=== PATIENT | female | born 2005 | race American Indian/Alaskan Native ===

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

== ENCOUNTER 2024-02-05 14:28 | Emergency (ER) | payer MEDICAID ==
[~2024-02-05] VITALS: Ht 162.6 cm; Wt 133.0 kg
[2024-02-05 16:11] LABS: Basophils # (auto) 0.1 10 ^3/uL (0-0.2); Basophils % (auto) 0.5 % (0.0-2.0); Eosinophils # (auto) 0.3 10 ^3/uL (0-0.8); Eosinophils % (auto) 2.4 % (0.0-7.0); Hematocrit 41.5 % (36.0-46.0); Lymphocytes # (auto) 2.7 10 ^3/uL (0.4-5.4); Lymphocytes % (auto) 20.8 % (10.0-50.0); Mean Corpuscular Hemoglobin 29.1 pg (28.0-32.0); Mean Corpuscular Hgb Conc. 33.6 g/dL (32.0-36.0); Mean Corpuscular Volume 86.6 fL (80.0-100.0); Monocytes # (auto) 0.5 10 ^3/uL (0-1.3); Monocytes % (auto) 3.9 % (0.0-12.0); Neutrophils # (auto) 9.3 10 ^3/uL (1.6-8.6); Neutrophils % (auto) 72.4 % (37.0-80.0); Red Blood Cells 4.79 10^6/uL (4.0-5.20); White Blood Cell 12.9 10^3/uL (4.4-10.8)
[2024-02-05 16:29] LABS: Alanine Aminotransferase 36 U/L (7-40); Albumin 4.2 g/dL (3.2-4.8); Alkaline Phosphatase 93 U/L (46-116); Anion Gap 8 (5-15); Aspartate Aminotransferase 19 U/L (13-40); BUN/Creatinine Ratio 15.2 (10.0-20.0); Blood Urea Nitrogen 12 mg/dL (9-23); Calcium 9.9 mg/dL (8.7-10.4); Carbon Dioxide 26 mmol/L (20-30); Chloride 107 mmol/L (98-107); Glucose 134 mg/dL (74-106); Lipase 40 U/L (12-53); Magnesium 1.9 mg/dL (1.6-2.6); Potassium 4.3 mmol/L (3.5-5.1); Sodium 141 mmol/L (136-145)
[2024-02-05 16:30] LABS: Bilirubin, Total 0.2 mg/dL (0.2-1.0); Total Protein 7.4 g/dL (5.7-8.2)
[2024-02-05] MEDS: SODIUM CHLORIDE 0.9% 500 ML IVB ONE (16:39)
[2024-02-05] MEDS: IOHEXOL 300 MG/ML 100ML BOTTLE IJ ONE (17:22)
[2024-02-05 18:24] LABS: Urine Bacteria None Seen /hpf (None Seen)
[2024-02-05 18:41] LABS: Urine Blood Negative /uL (Negative); Urine Clarity Clear (Clear); Urine Color Light-Yellow (Yellow); Urine Protein, UAD TRACE (Negative); Urine Specific Gravity 1.035 (1.001-1.035); Urine Urobilinogen Normal (Negative); Urine WBC 1 /hpf (0 - 5); Urine pH 6.5 (5.0-9.0)
[2024-02-05] MEDS ORDERED: NITR-87 PO (20:28)
[2024-02-05 20:41] VITALS: BP 134/60; PULSE 77; RESP 16; TEMP 97.8; O2SAT 97
== END 2024-02-05 20:44 | disposition home or self-care (01) ==
LOC: ER 14:28
DX: R30.0 Dysuria (principal); R10.2 Pelvic and perineal pain; F41.9 Anxiety disorder, unspecified; F20.9 Schizophrenia, unspecified
CPT/HCPCS: 36415; 71046; 74177; 80053; 81001; 83690; 83735; 84702; 85025; 96360; 96361; 99285; J7030; Q9967

== ENCOUNTER → 2024-07-20 | Day surgery (SDC) | payer MEDICAID ==
[2024-07-17 11:36] LABS: Basophils # (auto) 0.1 10 ^3/uL (0-0.2); Basophils % (auto) 0.9 % (0.0-2.0); Eosinophils # (auto) 0.4 10 ^3/uL (0-0.8); Eosinophils % (auto) 3.6 % (0.0-7.0); Hematocrit 42.8 % (36.0-46.0); Hemoglobin 14.2 g/dL (12.2-16.2); Lymphocytes % (auto) 28.9 % (10.0-50.0); Mean Corpuscular Hemoglobin 28.4 pg (28.0-32.0); Mean Corpuscular Hgb Conc. 33.1 g/dL (32.0-36.0); Mean Corpuscular Volume 85.8 fL (80.0-100.0); Monocytes # (auto) 0.5 10 ^3/uL (0-1.3); Monocytes % (auto) 4.4 % (0.0-12.0); Neutrophils # (auto) 6.5 10 ^3/uL (1.6-8.6); Neutrophils % (auto) 62.2 % (37.0-80.0); Platelet Count (auto) 298 10^3/uL (140-450); Red Blood Cells 4.99 10^6/uL (4.0-5.20); Red Cell Distribution Width 15.4 % (11.8-14.3); White Blood Cell 10.4 10^3/uL (4.4-10.8)
[2024-07-17 12:03] LABS: Urine Bacteria FEW /hpf (None Seen); Urine Blood TRACE /uL (Negative); Urine Clarity Turbid (Clear); Urine Color Light-Yellow (Yellow); Urine Protein, UAD Negative (Negative); Urine Specific Gravity 1.024 (1.001-1.035); Urine Squamous Epithelial Cell FEW /hpf (<5); Urine Urobilinogen Normal (Negative); Urine WBC <1 /hpf (0 - 5); Urine pH 5.5 (5.0-9.0)
[2024-07-17 12:11] LABS: Alanine Aminotransferase 31 U/L (7-40); Albumin 4.5 g/dL (3.2-4.8); Alkaline Phosphatase 85 U/L (46-116); Anion Gap 6 (5-15); Aspartate Aminotransferase 20 U/L (13-40); BUN/Creatinine Ratio 16.7 (10.0-20.0); Bilirubin, Total 0.4 mg/dL (0.2-1.0); Blood Urea Nitrogen 12 mg/dL (9-23); Calcium 10.3 mg/dL (8.7-10.4); Carbon Dioxide 28 mmol/L (20-31); Chloride 105 mmol/L (98-107); Glucose 95 mg/dL (74-106); Potassium 4.3 mmol/L (3.5-5.1); Sodium 139 mmol/L (136-145); Total Protein 7.9 g/dL (5.7-8.2)
[2024-07-17 12:18] LABS: Partial Thromboplastin Time 27.9 SEC (24.5-34.5); Prothrombin Time 10.6 sec (9.3-11.8)
[~2024-07-20] VITALS: Ht 162.6 cm; Wt 130.6 kg
[~2024-07-20] MED LIST: ARIP2TAB PO; CHOL25CH3 PO; CITA10TA8 PO; CLON-1003 PO; LIDOCAINE 2% (LOCAL ANESTH.) PF 5ml SDV ONE; NAP500T PO; PROPOFOL 10 MG/ML 20 ML IV ONE; SERT25TA28 PO; UBRO50TA2 PO
[2024-07-20 09:33] VITALS: PULSE 67; RESP 23; TEMP 97.7; O2SAT 100
--- NOTE | 2024-07-20 09:33 | DVHHP2 ---
GI H&P Pre-Op Assessment Date: 07/20/24 Chief complaint: epigastric pain, constipation, melena and blood in stool. HPI: per clinic note Past medical history: per clinic note Past surgical history: per clinic note Family history: per clinic note Physical exam: General: NAD, AAOX3 HEENT: PERRL, no scleral icterus, normal hearing, gums without lesions or bleeding, oropharynx clear without erythema or exudate. Neck: Supple without enlargement of the thyroid, or lymphadenopathy. Chest: Normal size and shape, no tenderness, lung moralez clear to auscultation and percussion, nonlabored breathing. Heart: RRR, no murmur Abdomen: non-distended, no tenderness to palpation, +BS, no hepatosplenomegaly Extremities: no edema Neurological: CN II-XII intact, sensation intact in all extremities, 5+ strength in all extremities Skin: No rashes, No jaundice Assessment: - epigastric pain, constipation, melena and blood in stool. Plan: - EGD - Colonoscopy - Risks (bleeding, infection, perforation, reaction to sedation medications and cardiopulmonary arrest) and benefit of the procedure were explained to patient. Patient agrees to undergo the procedure. ELLEN DALY MD Jul 20, 2024 09:33
--- NOTE | 2024-07-20 09:34 | DVHOP2 ---
Operative Report DATE OF OPERATION: 07/20/24 PROCEDURE: Upper Endoscopy. PREOPERATIVE INDICATION: The patient is a 18 -year-old female undergoing endoscopy for epigastric pain and melena. POSTOPERATIVE DIAGNOSES: 1. Normal EGD PROCEDURE PERFORMED BY: Branden Philippe SCOPE: Olympus videoendoscope. ASA CLASS: 3 PREOPERATIVE MEDICATIONS: MAC with Homero ALARCON PROCEDURE IN DETAIL: After obtaining an informed consent, the patient was placed on left lateral decubitus position. The patient was then sedated with the above medications. A bite block was placed between her teeth. The endoscope was then passed through the oropharynx, into the esophagus, and through the stomach and pylorus up to the second and third part of the duodenum. The duodenum and stomach was normal in appearance. Gastric biopsies were obtained. The GEJ was normal in appearance at 36 cm. The esophagus was normal in appearance. The endoscope was then withdrawn. The patient tolerated the procedure well without difficulty. COMPLICATIONS : None SPECIMENS: Gastric biopsies DISPOSITION: D/C to home PLAN: 1. Await for biopsy result BRANDEN PHILIPPE MD Jul 20, 2024 09:34
--- NOTE | 2024-07-20 09:36 | DVHOP2 ---
Operative Report DATE OF OPERATION: 07/20/24 PROCEDURE: Colonoscopy. PREOPERATIVE INDICATION: The patient is a 18 -year-old female undergoing colonoscopy for constipation and blood in stool. POSTOPERATIVE DIAGNOSES: 1. Normal colonoscopy. PROCEDURE PERFORMED BY: Branden Philippe M.D. SCOPE: Olympus videocolonoscope. ASA CLASS: 3 PREOPERATIVE MEDICATIONS: MADHU with Homero ALARCON PROCEDURE IN DETAIL: After obtaining an informed consent, the patient was placed on left lateral decubitus position. She was then sedated with the above medications. A rectal examination was performed that was normal. The colonoscope was then passed through the anus into the rectosigmoid and through the descending, transverse, and ascending colon up to the cecum with visualization of the appendiceal orifice, base of the cecum and the ileocecal valve. No mass or polyp was observed. The colonoscope was then withdrawn. The patient tolerated the procedure well without difficulty. WITHDRAWAL TIME: 6 minutes QUALITY OF THE PREP: [place] Bowel Prep score: 7 COMPLICATIONS : None SPECIMENS: None DISPOSITION: D/C to home PLAN: 1. Pt will c/u in GI clinic BRANDEN PHILIPPE MD Jul 20, 2024 09:36
--- NOTE | 2024-07-20 09:36 | DVHDS2 ---
Physician Discharge Progress N Final Diagnosis: normal EGD, normal colonoscopy Operations or Procedures: Operations or Procedures EGD with biopsy colonoscopy Condition on Discharge: Good Disposition: Home Discharge Instructions: Diet: Regular Activity: No Restrictions, As Tolerated Medications: resume with previous home medications Follow Up Care: Discharge Statement: "Patient was advised to return to the ER or call 911 if any headaches, dizziness, shortness of breath, chest pain, abdominal pain, bleeding, fevers, or worsening of medical condition. Patient was counseled about treatment plan, medications, possible side effects, patientverbalized understanding. All questions were answered to the best of my ability. This discharge took greater then 30 minutes in planning, reviewing documentation, counseling the patient, and discussing with other team members." ELLEN DALY MD Jul 20, 2024 09:36
[2024-07-20 10:11] VITALS: BP 128/80; PULSE 61; RESP 16; O2SAT 100
== END | disposition home or self-care (01) ==
LOC: GI 07:12
PROVIDERS: ATTEND Internal Medicine Gastroenterology
DX: K92.1 Melena (principal); K59.00 Constipation, unspecified; R10.13 Epigastric pain; K29.50 Unspecified chronic gastritis without bleeding; G47.33 Obstructive sleep apnea (adult) (pediatric); F41.9 Anxiety disorder, unspecified; Z79.899 Other long term (current) drug therapy; Z91.018 Allergy to other foods
CPT/HCPCS: 36415; 43239; 45378; 80053; 81001; 84702; 85025; 85610; 85730; 88305; 88312; 88342; J2003; J2704; J7030

== ENCOUNTER 2024-11-05 20:11 | Inpatient (IN) | payer MEDICAID ==
[~2024-11-05] VITALS: Ht 162.6 cm; Wt 131.4 kg
[~2024-11-05 20:11] MED LIST changes: -LIDOCAINE 2% (LOCAL ANESTH.) PF 5ml SDV ONE; -PROPOFOL 10 MG/ML 20 ML IV ONE
--- NOTE | 2024-11-05 20:28 | ED.PDOC ---
GI ASSESSMENT HPI Comments 19 y.o female with PMHx of sleep apnea, Schizophrenia, Depression, anxiety, bipolar disorder, presents to the ED via EMS for a chief complaint of diffuse abdominal pain that started today at 1600. Patient describes pain as a stabbing sensation, is constant, non radiating and has no associated symptoms. Patient mentions starting Wegovy injection today and states she used it at 12:43pm for weight loss. Patient denies any nausea, vomiting, fever, chills. diarrhea, constipation, dysuria, hematuria or flank pain. Last bowel movement was one hour ago and described as normal. She denies any substance, alcohol or tobacco use. Time Seen by MD: 20:20 Primary Care Provider: PATRIC Reviewed Notes: Nurses Notes, Fish Hatchery Man Notes, Medications, Allergies Allergies: Coded Allergies: Ciprofloxacin (Unverified Allergy, Mild, N/V, 07/17/24) Uncoded Allergies: KIWI (Allergy, Intermediate, 04/05/24) IYCHY RED Home Meds Active Scripts Dicyclomine Hcl (BENTYL CAPSULE) 10 Mg Cp, 2 CAP PO Q6HP PRN, #30 CAP 11 Refills Prn abdominal pain Prov:BEAU DAIZ MD 11/05/24 Ibuprofen Micronized (Ibuprofen) 800 Mg Tab, 800 MG PO Q8HP PRN, #30 TAB Prn pain, take with food. Prov:BEAU DIAZ MD 11/05/24 Reported Medications Ubrogepant (Ubrelvy) Unknown Strength Tab, PO, TAB 07/17/24 Clonazepam (Klonopin) Unknown Strength Tab, PO DAILY, #30 TAB 07/17/24 Cholecalciferol (D3) Unknown Strength Chw, PO, TAB.CHEW 07/17/24 Citalopram Hydrobromide (Celexa) Unknown Strength Tab, PO DAILY, #30 TAB 2 Refills 07/17/24 Naproxen (NAPROSYN TABLET) Unknown Strength Tb, PO BID, #60 TAB 1 Refill 07/17/24 Sertraline Hcl (Sertraline Hcl) Unknown Strength Tab, PO DAILY, #30 TAB 2 Refills 07/17/24 Aripiprazole (Abilify) Unknown Strength Tab, PO DAILY, #30 TAB 2 Refills 07/17/24 Information Source: Patient, Emergency Med Personnel Mode of Arrival: EMS Timing: Hours Duration: Since onset Quality: Stabbing Vomitus: None Stool: Normal Severity: Moderate Recent: None Recent Hx of: None Pain Location: Diffuse Modifying Factors: Nothing Associated sign and symptoms: Abdominal Pain Past Medical History PAST MEDICAL HISTORY: Anxiety, Depression, Schizophrenia Past Medical History (Other): bipolar disorder and sleep apnea Surgical History: Denies all surgeries 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 History Family History Family History: No family hx of Cancer, No family hx of DM, No family hx of Heart micaela Social History Smoker: Non-Smoker Alcohol: Denies ETOH Use Drugs: Denies Drug Use Lives In: Home Constitutional: denies: chills, diaphoresis, fatigue, fever, malaise, sweats, weakness, others EENTM: denies: blurred vision, double vision, ear bleeding, ear discharge, ear drainage, ear pain, ear ringing, eye pain, eye redness, hearing loss, mouth pain, mouth swelling, nasal discharge, nose bleeding, nose congestion, nose pain, photophobia, tearing, throat pain, throat swelling, voice changes, others Respiratory: denies: cough, hemoptysis, orthopnea, SOB at rest, shortness of breath, SOB with excertion, stridor, wheezing, others Cardiovascular: denies: chest pain, dizzy spells, diaphoresis, Dyspnea on exert ion, edema, irregular heart beat, left arm pain, lightheadedness, palpitations, PND, syncope, others Gastrointestinal: reports: abdominal pain; denies: abdomen distended, blood streaked bowels, constipated, diarrhea, dysphagia, difficulty swallowing, hematemesis, melena, nausea, poor appetite, poor fluid intake, rectal bleeding, rectal pain, vomiting, others Genitourinary: denies: abnormal vagina bleeding, burning, dyspareunia, dysuria, flank pain, frequency, hematuria, incontinence, pain, , vagina discharge, urgency, others Neurological: denies: dizziness, fainting, headache, left sided numbness, left sided weakness, numbness, paresthesia, pre-existing deficit, right sided numbness, right sided weakness, seizure, speech problems, tingling, tremors, weakness, others Musculoskeletal: denies: back pain, gout, joint pain, joint swelling, muscle pain, muscle stiffness, neck pain, others Integumetry: denies: bruises, change in color, change in hair/nails, dryness, laceration, lesions, lumps, rash, wounds, others Allergic/Immunocompromised: denies: Difficulty Healing, Frequent Infections, Hives, Itching, others Hematologic/Lymphatic: denies: anemia, blood clots, easy bleeding, easy bruising, swollen glands, others Endocrine: denies: excessive hunger, excessive sweating, excessive thirst, excessive urination, flushing, intolerance to cold, intolerance to heat, unexplained weight gain, unexplained weight loss, others Psychiatric: denies: anxiety, bipolar disorder, depression, hopeless, panic disorder, schizophrenia, sleepless, suicidal, others All Other Systems: Reviewed and Negative Physical Exam General Appearance: Mild Distress, Obese HEENT: Other (Pupils and face symmetric. Moist mucous membranes.) Neck: Full Range of Motion, Normal Inspection Respiratory: Lungs Clear, No Accessory Muscle Use, No Respiratory Distress, Normal Breath Sounds Cardiovascular: No Edema, No JVD, Regular Rate/Rhythm Breast Exam: Deferred Gastrointestinal: Diffuse, Soft, Tenderness Genitalia: Deferred Pelvic: Deferred Rectal: Deferred Extremities: Normal inspection, Normal range of motion, Non-tender, No pedal edema Neurologic: Alert (Oriented x4), Normal Affect, Normal Mood, Other (Ambulatory.) Cerebellar Function: NOT DONE Reflexes: NOT DONE Skin: Dry, Normal Color, Warm Lymphatic: NOT DONE Was a procedure done? Was a procedure done?: No GI differential Dx Differential Diagnosis: Appendicitis, Constipation, Diverticular disease, Ectopic , Gastroenteritis, Inflammatory BD, Pancreatitis, Dehydration, Diabetes/ DKA, Electrolyte Imbalance, Food Poisoning, , Bacterial, Viral, Impaction, Renal Failure, Stress Ulcer, Kidney Stone Other Differential Diagnosis Medication side effect, among others X-Ray, Labs, Meds, VS Vital Signs Date Time Temp Pulse Resp B/P (MAP) Pulse Ox O2 Delivery O2 Flow Rate FiO2 11/05/24 20:26 97.7 80 96 160/91 (114) 96 97.7 Lab Test 11/05/24 20:40 11/05/24 20:20 Range/Units White Blood Count 12.7 H 4.4-10.8 10^3/uL Red Blood Count 4.75 4.0-5.20 10^6/uL Hemoglobin 13.3 12.2-16.2 g/dL Hematocrit 40.4 36.0-46.0 % Mean Corpuscular Volume 85.2 80.0-100.0 fL Mean Corpuscular Hemoglobin 28.0 28.0-32.0 pg Mean Corpuscular Hemoglobin Concent 32.8 32.0-36.0 g/dL Red Cell Distribution Width 14.6 H 11.8-14.3 % Platelet Count 301 140-450 10^3/uL Mean Platelet Volume 8.6 6.9-10.8 fL Neutrophils (%) (Auto) 67.2 37.0-80.0 % Lymphocytes (%) (Auto) 21.5 10.0-50.0 % Monocytes (%) (Auto) 6.7 0.0-12.0 % Eosinophils (%) (Auto) 4.1 0.0-7.0 % Basophils (%) (Auto) 0.5 0.0-2.0 % Neutrophils # (Auto) 8.5 1.6-8.6 10 ^3/uL Lymphocytes # (Auto) 2.7 0.4-5.4 10 ^3/uL Monocytes # (Auto) 0.8 0-1.3 10 ^3/uL Eosinophils # (Auto) 0.5 0-0.8 10 ^3/uL Basophils # (Auto) 0.1 0-0.2 10 ^3/uL Nucleated Red Blood Cells 0.0 % Sodium Level 139 136-145 mmol/L Potassium Level 4.1 3.5-5.1 mmol/L Chloride Level 106 98-107 mmol/L Carbon Dioxide Level 27 20-31 mmol/L Anion Gap 6 5-15 Blood Urea Nitrogen 7 L 9-23 mg/dL Creatinine 0.60 0.550-1.02 mg/dL Glomerular Filtration Rate Calc 132 >90 mL/min BUN/Creatinine Ratio 11.7 10.0-20.0 Serum Glucose 88 74-106 mg/dL Lactic Acid Level 0.7 0.4-2.0 mmol/L Calcium Level 9.7 8.7-10.4 mg/dL Total Bilirubin 0.3 0.2-1.0 mg/dL Aspartate Amino Transferase (AST) 23 13-40 U/L Alanine Aminotransferase (ALT) 30 7-40 U/L Alkaline Phosphatase 92 46-116 U/L Total Protein 7.6 5.7-8.2 g/dL Albumin 4.4 3.2-4.8 g/dL Lipase 38 12-53 U/L Beta HCG, Quantitative 0.1 L 1.5-4.2 mIU/mL Urine Color Light-yellow Yellow Urine Clarity Clear Clear Urine pH 6.5 5.0-9.0 Urine Specific [place] 1.013 1.001-1.035 Urine Protein Negative Negative Urine Ketones Negative Negative Urine Blood Negative Negative /uL Urine Nitrite Negative Negative Urine Bilirubin Negative Negative Urine Urobilinogen Normal Negative mg/dL Urine Leukocyte Esterase Negative Negative /uL Urine RBC 1 0 - 4 /hpf Urine Microscopic WBC < 1 0-5 /HPF Urine Squamous Epithelial Cells Few <5 /hpf Urine Bacteria None seen None Seen /hpf Urine Glucose Normal Normal mg/dL PROCEDURE(s): ABPL - CT AB PEL WO CON-NO ORAL OR IV REASON: diffuse abd pain after using wegovy ORDER NUMBER(s): [id number], ACCESSION NUMBER(s): [id number] Exam: CT CT AB PEL WO CON-NO ORAL OR IV History: diffuse abd pain after using wegovy Comparison Study: None Technique: Multidetector spiral CT of the abdomen was performed from lung bases to pubic symphysis. Imaging was performed without IV contrast. Axial, coronal and sagittal multiplanar reformats were obtained from the axial data set by the technologist. Radiation Dose : 1. Abdomen/Pelvis: CTDIvol 28 mGy, DLP 1630 mGy*cm. Findings: Evaluation of solid organs is limited due to lack of intravenous contrast use. Lung Bases: No acute or significant lung base finding. Normal heart size. No pleural or pericardial effusion. Liver: The liver is normal in size. No focal lesions. Gallbladder and Biliary Tree: Unremarkable Spleen: Unremarkable Pancreas: The pancreas is grossly normal in appearance. Adrenal Glands: Unremarkable Kidneys: Kidneys are grossly normal without calculi or hydronephrosis. Bladder: Grossly unremarkable for degree of distention. Bowel: The stomach is grossly normal in appearance. Small bowel and colon are normal in caliber and distribution. The appendix is not visualized; however, no secondary findings of acute appendicitis identified. Ascites: Absent Lymphadenopathy: No mesenteric, retroperitoneal or periportal lymphadenopathy. Abdominal Wall and Mesentery: Unremarkable. Vasculature: The visualized abdominal aorta is normal in size and caliber. Evaluation of abdominal and pelvic vessels is limited due to lack of intravenous contrast. Pelvic Organs: Unremarkable Musculoskeletal: No aggressive focal bony lesions, acute fractures or di slocation. IMPRESSION: 1. No acute abdominal or pelvic findings. Radiation optimization: All CT scans at this facility use at least one of these dose optimization techniques: automated exposure control mA and/or kV adjustment per patient size (includes targeted exams where dose is matched to clinical indication) or iterative reconstruction. X-Ray, Labs, Meds, VS Comment 19 y.o female with PMHx of sleep apnea, Schizophrenia, Depression, anxiety, bipolar disorder brought in by EMS complaining of diffuse abdominal pain after using Wegovy. Vitals remarkable for BP 160/91 Exam remarkable for mild diffuse abdominal tenderness to palpation. Nontender to percussion. No rebound or guarding. Rhythm strip independently interpreted by me: Sinus rhythm, rate 80, no ectopy. CT abdomen and pelvis IMPRESSION: 1. No acute abdominal or pelvic findings. CBC remarkable for WBC 12.7, CMP, lipase, UA and lactate unremarkable for any abnormality of acute significance Patient treated with the following in the ED: 1 L 0.9 normal saline IV bolus, morphine 4 mg IV, Zofran 4 mg IV, Bentyl 20 mg IM On re-evaluation, patient states symptoms have improved. Vitals were stable, and repeat abdominal exam is benign. Patient now appears stable for discharge with close outpatient follow-up. Symptoms are likely due to side effect of Wegovy. Rx ibuprofen, Bentyl Time of 1ST Reevaluation: 21:30 Reevaluation 1ST: Unchanged Time of 2ND Reevaluation: 22:29 Reevaluation 2ND: Improved Patient Education/Counseling: Diagnosis, Treatment, Prognosis Family Education/Counseling: No Family Present Departure 1 Departure Time of Disposition: 22:00 Impression: Primary Impression: Abdominal pain Qualified Codes: R10.84 - Generalized abdominal pain Disposition: HOME / SELF CARE / HOMELESS Condition: Stable Additional Instructions: Your blood and urine tests were unremarkable. Your CT scan was unremarkable. Your symptoms are possibly due to Wegovy. I have prescribed medication for your symptoms. Follow-up with your primary doctor in 1-2 days. [place] [id number] Ph: [phone] DIAGNOSTIC IMAGING Diagnostic Imaging Report : [id number] Signed PATIENT: ARCHANA ORDONEZ ACCT: [id number] UNIT: [id number] : 2005 LOC: ER ROOM / BED: / AGE / SEX: 19 / F ADM STATUS: REG ER SERVICE 25 ORDERING PHYSICIAN: BEAU DIAZ MD PROCEDURE(s): ABPL - CT AB PEL WO CON-NO ORAL OR IV REASON: diffuse abd pain after using wegovy ORDER NUMBER(s): [id number], ACCESSION NUMBER(s): [id number] Exam: CT CT AB PEL WO CON-NO ORAL OR IV History: diffuse abd pain after using wegovy Comparison Study: None Technique: Multidetector spiral CT of the abdomen was performed from lung bases to pubic symphysis. Imaging was performed without IV contrast. Axial, coronal and sagittal multiplanar reformats were obtained from the axial data set by the technologist. Radiation Dose : 1. Abdomen/Pelvis: CTDIvol 28 mGy, DLP 1630 mGy*cm. Findings: Evaluation of solid organs is limited due to lack of intravenous contrast use. Lung Bases: No acute or significant lung base finding. Normal heart size. No pleural or pericardial effusion. Liver: The liver is normal in size. No focal lesions. Gallbladder and Biliary Tree: Unremarkable Spleen: Unremarkable Pancreas: The pancreas is grossly normal in appearance. Adrenal Glands: Unremarkable Kidneys: Kidneys are grossly normal without calculi or hydronephrosis. Bladder: Grossly unremarkable for degree of distention. Bowel: The stomach is grossly normal in appearance. Small bowel and colon are normal in caliber and distribution. The appendix is not visualized; however, no secondary findings of acute appendicitis identified. Ascites: Absent Lymphadenopathy: No mesenteric, retroperitoneal or periportal lymphadenopathy. Abdominal Wall and Mesentery: Unremarkable. Vasculature: The visualized abdominal aorta is normal in size and caliber. Evaluation of abdominal and pelvic vessels is limited due to lack of intravenous contrast. Pelvic Organs: Unremarkable Musculoskeletal: No aggressive focal bony lesions, acute fractures or dislocation. IMPRESSION: 1. No acute abdominal or pelvic findings. Radiation optimization: All CT scans at this facility use at least one of these dose optimization techniques: automated exposure control mA and/or kV adjustment per patient size (includes targeted exams where dose is matched to clinical indication) or iterative reconstruction. e-Prescriptions Dicyclomine Hcl (BENTYL CAPSULE) 10 Mg Cp 2 CAP PO Q6HP PRN, #30 CAP 11 Refills Prn abdominal pain Prov: BEAU DIAZ MD 11/05/24 Ibuprofen Micronized (Ibuprofen) 800 Mg Tab 800 MG PO Q8HP PRN, #30 TAB Prn pain, take with food. Prov: BEAU DIAZ MD 11/05/24 Discharged With: Relative Critical Care Note Critical Care Time?: No Stability Stability form required: No I personally scribed for BEAU DIAZ MD ([facility] on 11/05/24 at 20:28. Electronically submitted by Johnna Smith ([facility]). BEAU DIAZ MD November 05, 2024 20:28
[2024-11-05 20:57] LABS: Urine Bacteria None Seen /hpf (None Seen)
[2024-11-05 20:58] LABS: Basophils # (auto) 0.1 10 ^3/uL (0-0.2); Basophils % (auto) 0.5 % (0.0-2.0); Eosinophils # (auto) 0.5 10 ^3/uL (0-0.8); Eosinophils % (auto) 4.1 % (0.0-7.0); Hematocrit 40.4 % (36.0-46.0); Hemoglobin 13.3 g/dL (12.2-16.2); Lymphocytes # (auto) 2.7 10 ^3/uL (0.4-5.4); Lymphocytes % (auto) 21.5 % (10.0-50.0); Mean Corpuscular Hgb Conc. 32.8 g/dL (32.0-36.0); Mean Corpuscular Volume 85.2 fL (80.0-100.0); Monocytes # (auto) 0.8 10 ^3/uL (0-1.3); Monocytes % (auto) 6.7 % (0.0-12.0); Neutrophils # (auto) 8.5 10 ^3/uL (1.6-8.6); Neutrophils % (auto) 67.2 % (37.0-80.0); Platelet Count (auto) 301 10^3/uL (140-450); Red Blood Cells 4.75 10^6/uL (4.0-5.20); Red Cell Distribution Width 14.6 % (11.8-14.3); White Blood Cell 12.7 10^3/uL (4.4-10.8)
[2024-11-05 21:04] LABS: Urine Blood Negative /uL (Negative); Urine Clarity Clear (Clear); Urine Color Light-Yellow (Yellow); Urine Protein, UAD Negative (Negative); Urine Specific Gravity 1.013 (1.001-1.035); Urine Squamous Epithelial Cell FEW /hpf (<5); Urine Urobilinogen Normal (Negative); Urine WBC < 1 /HPF (0-5); Urine pH 6.5 (5.0-9.0)
[2024-11-05 21:14] LABS: Alanine Aminotransferase 30 U/L (7-40); Albumin 4.4 g/dL (3.2-4.8); Alkaline Phosphatase 92 U/L (46-116); Anion Gap 6 (5-15); Aspartate Aminotransferase 23 U/L (13-40); BUN/Creatinine Ratio 11.7 (10.0-20.0); Calcium 9.7 mg/dL (8.7-10.4); Carbon Dioxide 27 mmol/L (20-31); Chloride 106 mmol/L (98-107); Glucose 88 mg/dL (74-106); Lipase 38 U/L (12-53); Potassium 4.1 mmol/L (3.5-5.1); Sodium 139 mmol/L (136-145); Total Protein 7.6 g/dL (5.7-8.2)
[2024-11-05 21:17] LABS: Bilirubin, Total 0.3 mg/dL (0.2-1.0); Blood Urea Nitrogen 7 mg/dL (9-23)
[2024-11-05] MEDS ORDERED: IBUP-1455 PO (21:41)
[2024-11-05] MEDS ORDERED: DICY10CA PO (21:41)
--- NOTE | 2024-11-05 22:21 | DVH ---
Exam: CT CT AB PEL WO CON-NO ORAL OR IV History: diffuse abd pain after using wegovy Comparison Study: None Technique: Multidetector spiral CT of the abdomen was performed from lung bases to pubic symphysis. Imaging was performed without IV contrast. Axial, coronal and sagittal multiplanar reformats were ob tained from the axial data set by the technologist. Radiation Dose : 1. Abdomen/Pelvis: CTDIvol 28 mGy, DLP 1630 mGy*cm. Findings: Evaluation of solid organs is limited due to lack of intravenous contrast use. Lung Bases: No acute or significant lung base finding. Normal heart size. No pleural or pericardial effusion. Liver: The liver is normal in size. No focal lesions. Gallbladder and Biliary Tree: Unremarkable Spleen: Unremarkable Pancreas: The pancreas is grossly normal in appearance. Adrenal Glands: Unremarkable Kidneys: Kidneys are grossly normal without calculi or hydronephrosis. Bladder: Grossly unremarkable for degree of distention. Bowel: The stomach is grossly normal in appearance. Small bowel and colon are normal in caliber and d istribution. The appendix is not visualized; however, no secondary findings of acute appendicitis id entified. Ascites: Absent Lymphadenopathy: No mesenteric, retroperitoneal or periportal lymphadenopathy. Abdominal Wall and Mesentery: Unremarkable. Vasculature: The visualized abdominal aorta is normal in size and caliber. Evaluation of abdominal a nd pelvic vessels is limited due to lack of intravenous contrast. Pelvic Organs: Unremarkable Musculoskeletal: No aggressive focal bony lesions, acute fractures or dislocation. IMPRESSION: 1. No acute abdominal or pelvic findings. Radiation optimization: All CT scans at this facility use at least one of these dose optimization olivia hniques: automated exposure control mA and/or kV adjustment per patient size (includes targeted exam s where dose is matched to clinical indication) or iterative reconstruction.
[2024-11-05] MEDS: SODIUM CHLORIDE 0.9% 1,000 ML IV ONE (23:14)
[2024-11-05] MEDS: ONDANSETRON HCL 4 MG/2 ML VIAL IV ONE (23:14)
[2024-11-05] MEDS: DICYCLOMINE HCL (10MG/ML) 2 ML AMPULE IM ONE (23:14)
[2024-11-05] MEDS: MORPHINE SULFATE 4 MG/ML SYR/VIAL IV ONE (23:15)
[2024-11-06] MEDS: PROCHLORPERAZINE EDISYLATE 5 MG/ML 2ML VIAL IV ONE (00:43)
[2024-11-06] MEDS: FAMOTIDINE (10MG/ML) 2ML VL IV ONE (01:01)
[2024-11-06] MEDS: KETOROLAC TROMETH 30 MG/ML 1ML VIAL IV ONE (01:01)
--- NOTE | 2024-11-06 01:05 | PRN ---
Misceleneous Note Note Note 19-year-old female with nausea, vomiting, pain. Patient was pending discharge however she continues to have abdominal pain, nausea, vomiting even after additional antiemetics. Patient to be admitted to hospitalist service for further treatment, evaluation and monitoring. Disposition Disposition: Admit inpatient Disposition condition: Stable Visit Coding Complete: No Admitting Diagnosis: Intractable Nausea and Vomiting CHRISTINA VILLATORO MD November 06, 2024 01:05
[2024-11-06 02:11] VITALS: PULSE 71; RESP 16; O2SAT 95
[2024-11-06] MEDS: MORPHINE SULFATE INJ 2 MG/ml SYRG IV ONE (03:35)
[2024-11-06] MEDS ORDERED: ACETAMINOPHEN 325 MG TAB PO PRN (04:45)
[2024-11-06] MEDS ORDERED: MORPHINE SULFATE INJ 2 MG/ml SYRG IV PRN (04:45)
--- NOTE | 2024-11-06 05:04 | DVHHP2 ---
History of Present Illness Reason for Visit: Abdominal pain History of Present Illness 19-year-old female presents for evaluation of abdominal pain. Patient reports diffuse abdominal pain that started today. Patient reports Wegovy for weight loss today. She has had multiple episodes of nausea and vomiting. Denies dysuria. No other acute complaints reported. Past Medical History Schizophrenia, depression Past Surgical History Denies Family History Noncontributory Smoke: No ALCOHOL: none Drugs: None Lives: with Family Review of Systems Review of Systems Review of systems are currently negative otherwise addressed in HPI. Allergies: Coded Allergies: Ciprofloxacin (Unverified Allergy, Mild, N/V, 07/17/24) Uncoded Allergies: KIWI (Allergy, Intermediate, 04/05/24) IYCHY RED Medications Current Medications Medications Dose Ordered Sig/Reece Route Start Time Stop Time Status Last Admin Dose Admin Pantoprazole Sodium 40 mg DAILY IV 11/06/24 10:00 Acetaminophen/ Hydrocodone Bitart 1 tab Q4HP PRN PO 11/06/24 04:45 Ondansetron HCl 4 mg Q4HP PRN IV 11/06/24 04:45 Acetaminophen 650 mg Q6HP PRN PO 11/06/24 04:45 Morphine Sulfate 2 mg Q6HPRN PRN IV 11/06/24 04:45 Exam Vital Signs Vital Signs Date Time Temp Pulse Resp B/P (MAP) Pulse Ox O2 Delivery O2 Flow Rate FiO2 11/06/24 03:35 62 18 117/63 11/06/24 02:11 95 Room Air* 0 21 11/06/24 02:11 98.3 98.3 Exam Gen: 19-year-old female in mild distress, morbidly obese Skin: Warm, dry, normal color and texture, no rash. HEENT: Normocephalic atraumatic, mucous membranes moist and pink. Neck: Cervical and supraclavicular nodes normal without enlargement, trachea is midline, thyroid gland is normal without masses. Pulmonary: Clear to auscultation and percussion bilaterally. Cardiac: Regular rate and rhythm. No murmur Abdomen: Soft, nontender, nondistended, bowel sounds present all 4 quadrants, no guarding, no rigidity, no organomegaly. Extremities: No cyanosis, clubbing, no edema Neuro: Cranial nerves II through XII grossly intact, normal affect and speech, no focal motor deficits. Labs/Xrays ORDERING PHYSICIAN: BEAU DIAZ MD PROCEDURE(s): ABPL - CT AB PEL WO CON-NO ORAL OR IV REASON: diffuse abd pain after using wegovy ORDER NUMBER(s): [id number], ACCESSION NUMBER(s): [id number] Exam: CT CT AB PEL WO CON-NO ORAL OR IV History: diffuse abd pain after using wegovy Comparison Study: None Technique: Multidetector spiral CT of the abdomen was performed from lung bases to pubic symphysis. Imaging was performed without IV contrast. Axial, coronal and sagittal multiplanar reformats were obtained from the axial data set by the technologist. Radiation Dose : 1. Abdomen/Pelvis: CTDIvol 28 mGy, DLP 1630 mGy*cm. Findings: Evaluation of solid organs is limited due to lack of intravenous contrast use. Lung Bases: No acute or significant lung base finding. Normal heart size. No pleural or pericardial effusion. Liver: The liver is normal in size. No focal lesions. Gallbladder and Biliary Tree: Unremarkable Spleen: Unremarkable Pancreas: The pancreas is grossly normal in appearance. Adrenal Glands: Unremarkable Kidneys: Kidneys are grossly normal without calculi or hydronephrosis. Bladder: Grossly unremarkable for degree of distention. Bowel: The stomach is grossly normal in appearance. Small bowel and colon are normal in caliber and distribution. The appendix is not visualized; however, no secondary findings of acute appendicitis identified. Ascites: Absent Lymphadenopathy: No mesenteric, retroperitoneal or periportal lymphadenopathy. Abdominal Wall and Mesentery: Unremarkable. Vasculature: The visualized abdominal aorta is normal in size and caliber. Evaluation of abdominal and pelvic vessels is limited due to lack of intravenous contrast. Pelvic Organs: Unremarkable Musculoskeletal: No aggressive focal bony lesions, acute fractures or dislocation. IMPRESSION: 1. No acute abdominal or pelvic findings. Radiation optimization: All CT scans at this facility use at least one of these dose optimization techniques: automated exposure control mA and/or kV adjustment per patient size (includes targeted exams where dose is matched to clinical indication) or iterative reconstruction. Labs Test 11/05/24 20:40 11/05/24 20:20 Range/Units White Blood Count 12.7 H 4.4-10.8 10^3/uL Red Blood Count 4.75 4.0-5.20 10^6/uL Hemoglobin 13.3 12.2-16.2 g/dL Hematocrit 40.4 36.0-46.0 % Mean Corpuscular Volume 85.2 80.0-100.0 fL Mean Corpuscular Hemoglobin 28.0 28.0-32.0 pg Mean Corpuscular Hemoglobin Concent 32.8 32.0-36.0 g/dL Red Cell Distribution Width 14.6 H 11.8-14.3 % Platelet Count 301 140-450 10^3/uL Mean Platelet Volume 8.6 6.9-10.8 fL Neutrophils (%) (Auto) 67.2 37.0-80.0 % Lymphocytes (%) (Auto) 21.5 10.0-50.0 % Monocytes (%) (Auto) 6.7 0.0-12.0 % Eosinophils (%) (Auto) 4.1 0.0-7.0 % Basophils (%) (Auto) 0.5 0.0-2.0 % Neutrophils # (Auto) 8.5 1.6-8.6 10 ^3/uL Lymphocytes # (Auto) 2.7 0.4-5.4 10 ^3/uL Monocytes # (Auto) 0.8 0-1.3 10 ^3/uL Eosinophils # (Auto) 0.5 0-0.8 10 ^3/uL Basophils # (Auto) 0.1 0-0.2 10 ^3/uL Nucleated Red Blood Cells 0.0 % Sodium Level 139 136-145 mmol/L Potassium Level 4.1 3.5-5.1 mmol/L Chloride Level 106 98-107 mmol/L Carbon Dioxide Level 27 20-31 mmol/L Anion Gap 6 5-15 Blood Urea Nitrogen 7 L 9-23 mg/dL Creatinine 0.60 0.550-1.02 mg/dL Glomerular Filtration Rate Calc 132 >90 mL/min BUN/Creatinine Ratio 11.7 10.0-20.0 Serum Glucose 88 74-106 mg/dL Lactic Acid Level 0.7 0.4-2.0 mmol/L Calcium Level 9.7 8.7-10.4 mg/dL Total Bilirubin 0.3 0.2-1.0 mg/dL Aspartate Amino Transferase (AST) 23 13-40 U/L Alanine Aminotransferase (ALT) 30 7-40 U/L Alkaline Phosphatase 92 46-116 U/L Total Protein 7.6 5.7-8.2 g/dL Albumin 4.4 3.2-4.8 g/dL Lipase 38 12-53 U/L Beta HCG, Quantitative 0.1 L 1.5-4.2 mIU/mL Urine Color Light-yellow Yellow Urine Clarity Clear Clear Urine pH 6.5 5.0-9.0 Urine Specific [place] 1.013 1.001-1.035 Urine Protein Negative Negative Urine Ketones Negative Negative Urine Blood Negative Negative /uL Urine Nitrite Negative Negative Urine Bilirubin Negative Negative Urine Urobilinogen Normal Negative mg/dL Urine Leukocyte Esterase Negative Negative /uL Urine RBC 1 0 - 4 /hpf Urine Microscopic WBC < 1 0-5 /HPF Urine Squamous Epithelial Cells Few <5 /hpf Urine Bacteria None seen None Seen /hpf Urine Glucose Normal Normal mg/dL Assessment/Plan Assessment/Plan Assessment Acute abdominal pain Plan Admit the patient to [facility] to the hospitalist Clear liquid diet Maintenance IV fluids Pain management Continue treatment per orders. Plan discussed with: Patient My Orders Orders - CRUZ SO Procedure Category Date Status Time Pantoprazole PHA 11/06/24 In Process (Protonix) 10:00 Sodium Chloride 0.9% PHA 11/06/24 In Process 04:45 * Gi Dvh Modeling Director CONS 11/06/24 Transmitted 04:37 Basic Metabolic Panel LAB 11/07/24 Verified 04:00 Admit ADMIT 11/06/24 Transmitted 04:37 Hydrocodone-Acet PHA 11/06/24 In Process 5/325mg Tab ([place] 04:45 Ondansetron Hcl PHA 11/06/24 In Process (Zofran) 04:45 Condition: Stable MAURIZIO 11/06/24 In Process 04:37 Acetaminophen Tablet PHA 11/06/24 In Process (Tylenol Tablet) 04:45 Clear Liq Diet DIET 11/06/24 Transmitted Breakfast Bedrest With Bathroom MAURIZIO 11/06/24 In Process Privileg 04:37 Morphine Sulfate PHA 11/06/24 In Process Injection 04:45 Date of Service: November 06, 2024 Billing Provider: CRUZ SO Common Visit Codes: [id number] INP/OBS CARE (MOD) CRUZ SO November 06, 2024 05:04
[2024-11-06] MEDS: SODIUM CHLORIDE 0.9% 1,000 ML IV ONE ×2 (05:30→13:28)
[2024-11-06] MEDS: PANTOPRAZOLE 40 MG/10 ML VIAL INJ IV SCH (08:59)
[2024-11-06 09:13] VITALS: BP 131/77; PULSE 70; PULSE 93; RESP 18; TEMP 98.5; O2SAT 96; O2SAT 97
[2024-11-06] MEDS: ONDANSETRON HCL 4 MG/2 ML VIAL IV PRN (09:20)
[2024-11-06 09:21] VITALS: BP 131/77; PULSE 93; RESP 18; TEMP 98.5; O2SAT 97
[2024-11-06] MEDS: HYDROcodone-ACET 5/325MG TAB PO PRN (11:51)
[2024-11-06 13:03] VITALS: BP 112/64; PULSE 54; RESP 18; TEMP 98.2; O2SAT 98
[2024-11-06] MEDS ORDERED: LAMO25TA27 PO (13:03)
[2024-11-06] MEDS ORDERED: FLUO-470 PO (13:03)
[2024-11-06] MEDS ORDERED: CLON0.5T4 PO (13:03)
--- NOTE | 2024-11-06 13:09 | DVHPN2 ---
Subjective Patient continues to report having epigastric pain and nausea and vomiting. Reviewed: Care Plan, Labs, Medications Changes from previous H/P or p: No Changes General: Per HPI Objective Vitals Vital Signs Date Time Temp Pulse Resp B/P (MAP) Pulse Ox O2 Delivery O2 Flow Rate FiO2 11/06/24 13:03 98.2 54 18 112/64 (80) 98 98.2 11/06/24 09:13 Room Air* 0 21 General Appearance: Alert, Oriented X3, Cooperative HEENT: Atraumatic, PERRLA Lungs: Clear to auscultation, Normal air movement Cardiovascular: Normal S1, Normal S2 Abdomen: Normal bowel sounds, Soft, No tenderness, No hepatospenomegaly Musculoskeletal: Normal sensory function, Normal motor function Psych/Mental Status: Mental status NL, Mood NL Medications Current Medications Medications Dose Ordered Sig/Reece Route Start Time Stop Time Status Last Admin Dose Admin Pantoprazole Sodium 40 mg DAILY IV 11/06/24 10:00 11/06/24 08:59 40 MG Acetaminophen/ Hydrocodone Bitart 1 tab Q4HP PRN PO 11/06/24 04:45 11/06/24 11:51 1 TAB Ondansetron HCl 4 mg Q4HP PRN IV 11/06/24 04:45 11/06/24 09:20 4 MG Acetaminophen 650 mg Q6HP PRN PO 11/06/24 04:45 Morphine Sulfate 2 mg Q6HPRN PRN IV 11/06/24 04:45 Metoclopramide HCl 10 mg Q8HR IV 11/06/24 14:00 UNV Clonazepam 0.5 mg BIDPRN PRN PO 11/06/24 13:15 UNV Fluoxetine HCl 60 mg QAM PO 11/07/24 07:00 UNV Laboratory Results Laboratory Tests 11/05/24 20:40 Chemistry Test 11/05/24 20:40 Albumin 4.4 g/dL (3.2-4.8) Calcium Level 9.7 mg/dL (8.7-10.4) Total Protein 7.6 g/dL (5.7-8.2) Lipid panel Test 11/05/24 20:40 Lipase 38 U/L (12-53) LFT Test 11/05/24 20:40 Alanine Aminotransferase (ALT) 30 U/L (7-40) Alkaline Phosphatase 92 U/L (46-116) Aspartate Amino Transferase (AST) 23 U/L (13-40) Total Bilirubin 0.3 mg/dL (0.2-1.0) Urinalysis Test 11/05/24 20:20 Urine Color Light-yellow (Yellow) Urine Clarity Clear (Clear) Urine pH 6.5 (5.0-9.0) Urine Specific [place] 1.013 (1.001-1.035) Urine Protein Negative (Negative) Urine Ketones Negative (Negative) Urine Blood Negative /uL (Negative) Urine Nitrite Negative (Negative) Urine Bilirubin Negative (Negative) Urine Urobilinogen Normal mg/dL (Negative) Urine Leukocyte Esterase Negative /uL (Negative) Urine RBC 1 /hpf (0 - 4) Urine Microscopic WBC < 1 /HPF (0-5) Urine Squamous Epithelial Cells Few /hpf (<5) Urine Bacteria None seen /hpf (None Seen) Urine Glucose Normal mg/dL (Normal) Labs and/or images reviewed: Labs reviewed by me, Image(s) reviewed by me Assessment/Plan Assessment/Plan Impression: -sirs response without organ dysfunction -obesity -schizophrenia -? Gastroparesis secondary to Wegovy injection -intractable nausea and vomiting Plan: -trial of Reglan -restart home antipsychotics -IV hydration -antiemetics -clear liquid diet -repeat labs in a.m. Total time spent with patient discussing and formulating plan of care: 35 minutes. This medical document was created using an electronic medical record system with [employer] dictation system. Although this document has been carefully reviewed, there may still be some phonetic and typographical errors. These areas are purely typographical due to imperfections of the software programs, and do not reflect any compromise in the patient's medical care. Plan discussed with: Patient, Other (RN) My Orders Orders - ALIA ESPINO PROCESS ARCHITECT Procedure Category Date Status Time Metoclopramide PHA 11/06/24 Logged Injection (Reglan 14:00 Sodium Chloride 0.9% PHA 11/06/24 Logged 13:15 Basic Metabolic Panel LAB 11/07/24 Verified 04:00 Complete Blood Count LAB 11/07/24 Verified 04:00 Clonazepam Tablet PHA 11/06/24 Logged (Klonopin Tablet) 13:15 Fluoxetine Capsule PHA 11/07/24 Logged (Prozac Capsule) 07:00 Date of Service: November 06, 2024 Billing Provider: ALIA ESPINO NP Common Visit Codes: [id number] INP/OBS CARE(HIGH) ALIA ESPINO NP November 06, 2024 13:09
[2024-11-06] MEDS ORDERED: clonazePAM 0.5 MG TAB PO PRN (13:15)
[2024-11-06] MEDS: METOCLOPRAMIDE HCL 5MG/ml INJ 2ml VIAL IV SCH (14:14)
[2024-11-06 17:04] VITALS: BP 106/65; PULSE 66; RESP 18; TEMP 97.7; O2SAT 96
--- NOTE | 2024-11-06 20:47 | DVHINCON2 ---
Date of service: November 06, 2024 Referring Physician Ajay Estrada Reason for Consultation Nausea vomiting and abdominal pain History of Present Illness 19-year-old female presents for evaluation of abdominal pain. Patient reports diffuse abdominal pain that started today. Patient reports Wegovy for weight loss today. She has had multiple episodes of nausea and vomiting. Denies dysuria. No other acute complaints reported. Patient had a recent EGD and colonoscopy in July [address] Branden Philippe which were both reported negative.In the past her drug screen was negative in August 2023 Past Medical History Past Medical History Schizophrenia, depression Past Surgical History Past Surgical History Recent EGD and colonoscopy Family History: Anxiety disorder G8 MOTHER FHx: bipolar disorder G8 MOTHER FHx: schizophrenia G8 MOTHER Allergies: Coded Allergies: Ciprofloxacin (Unverified Allergy, Mild, N/V, 07/17/24) Uncoded Allergies: KIWI (Allergy, Intermediate, 04/05/24) IYCHY RED Home Meds Active Scripts Dicyclomine Hcl (BENTYL CAPSULE) 10 Mg Cp, 2 CAP PO Q6HP PRN, #30 CAP 11 Refills Prn abdominal pain Prov:BEAU DIAZ MD 11/05/24 Ibuprofen Micronized (Ibuprofen) 800 Mg Tab, 800 MG PO Q8HP PRN, #30 TAB Prn pain, take with food. Prov:BEAU DIAZ MD 11/05/24 Reported Medications Clonazepam (Clonazepam) 0.5 Mg Tab, 1 TAB PO BIDPRN PRN 11/06/24 Lamotrigine (Lamotrigine) 25 Mg Tab, PO 11/06/24 Fluoxetine HCl (Fluoxetine HCl) 20 Mg Cap, 3 CAP PO QAM 11/06/24 Ubrogepant (Ubrelvy) Unknown Strength Tab, PO, TAB 07/17/24 Clonazepam (Klonopin) Unknown Strength Tab, PO DAILY, #30 TAB 07/17/24 Cholecalciferol (D3) Unknown Strength Chw, PO, TAB.CHEW 07/17/24 Citalopram Hydrobromide (Celexa) Unknown Strength Tab, PO DAILY, #30 TAB 2 Refills 07/17/24 Naproxen (NAPROSYN TABLET) Unknown Strength Tb, PO BID, #60 TAB 1 Refill 07/17/24 Sertraline Hcl (Sertraline Hcl) Unknown Strength Tab, PO DAILY, #30 TAB 2 Refills 07/17/24 Aripiprazole (Abilify) Unknown Strength Tab, PO DAILY, #30 TAB 2 Refills 07/17/24 Current Medications Current Medications Medications (Trade) Dose Ordered Sig/Reece Route PRN Reason Start Time Stop Time Status Last Admin Pantoprazole Sodium (Protonix) 40 mg DAILY IV 11/06/24 10:00 11/06/24 08:59 Acetaminophen/ Hydrocodone Bitart ([place] 5/325MG Tab) 1 tab Q4HP PRN PO MODERATE PAIN (4-6 PAIN SCALE) 11/06/24 04:45 11/06/24 11:51 Ondansetron HCl (Zofran) 4 mg Q4HP PRN IV NAUSEA / VOMITING 11/06/24 04:45 11/06/24 16:28 Acetaminophen (Tylenol Tablet) 650 mg Q6HP PRN PO PAIN SCALE 1-3 OR TEMP>100.4 11/06/24 04:45 Morphine Sulfate 2 mg Q6HPRN PRN IV SEVERE PAIN (7-10 PAIN SCALE) 11/06/24 04:45 Metoclopramide HCl (Reglan Injection) 10 mg Q8HR IV 11/06/24 14:00 11/06/24 14:14 Clonazepam (KlonoPIN TABLET) 0.5 mg BIDPRN PRN PO anxiety 11/06/24 13:15 Fluoxetine HCl (PROzac CAPSULE) 60 mg QAM PO 11/07/24 07:00 Lamotrigine (LaMICtal TABLET) 50 mg HS PO 11/06/24 22:00 Vital Signs Vital Signs Date Time Temp Pulse Resp B/P (MAP) Pulse Ox O2 Delivery O2 Flow Rate FiO2 11/06/24 17:04 97.7 66 18 106/65 (79) 96 97.7 11/06/24 09:13 Room Air* 0 21 Physical Exam Gen: 19-year-old female in mild distress, morbidly obese Skin: Warm, dry, normal color and texture, no rash. HEENT: Normocephalic atraumatic, mucous membranes moist and pink. Neck: Cervical and supraclavicular nodes normal without enlargement, trachea is midline, thyroid gland is normal without masses. Pulmonary: Clear to auscultation and percussion bilaterally. Cardiac: Regular rate and rhythm. No murmur Abdomen: Soft, nontender, nondistended, bowel sounds present all 4 quadrants, no guarding, no rigidity, no organomegaly. Extremities: No cyanosis, clubbing, no edema Neuro: Cranial nerves II through XII grossly intact, normal affect and speech, no focal motor deficits. Labs/Diagnostic Data Labs Test 11/05/24 20:40 11/05/24 20:20 Range/Units White Blood Count 12.7 H 4.4-10.8 10^3/uL Red Blood Count 4.75 4.0-5.20 10^6/uL Hemoglobin 13.3 12.2-16.2 g/dL Hematocrit 40.4 36.0-46.0 % Mean Corpuscular Volume 85.2 80.0-100.0 fL Mean Corpuscular Hemoglobin 28.0 28.0-32.0 pg Mean Corpuscular Hemoglobin Concent 32.8 32.0-36.0 g/dL Red Cell Distribution Width 14.6 H 11.8-14.3 % Platelet Count 301 140-450 10^3/uL Mean Platelet Volume 8.6 6.9-10.8 fL Neutrophils (%) (Auto) 67.2 37.0-80.0 % Lymphocytes (%) (Auto) 21.5 10.0-50.0 % Monocytes (%) (Auto) 6.7 0.0-12.0 % Eosinophils (%) (Auto) 4.1 0.0-7.0 % Basophils (%) (Auto) 0.5 0.0-2.0 % Neutrophils # (Auto) 8.5 1.6-8.6 10 ^3/uL Lymphocytes # (Auto) 2.7 0.4-5.4 10 ^3/uL Monocytes # (Auto) 0.8 0-1.3 10 ^3/uL Eosinophils # (Auto) 0.5 0-0.8 10 ^3/uL Basophils # (Auto) 0.1 0-0.2 10 ^3/uL Nucleated Red Blood Cells 0.0 % Sodium Level 139 136-145 mmol/L Potassium Level 4.1 3.5-5.1 mmol/L Chloride Level 106 98-107 mmol/L Carbon Dioxide Level 27 20-31 mmol/L Anion Gap 6 5-15 Blood Urea Nitrogen 7 L 9-23 mg/dL Creatinine 0.60 0.550-1.02 mg/dL Glomerular Filtration Rate Calc 132 >90 mL/min BUN/Creatinine Ratio 11.7 10.0-20.0 Serum Glucose 88 74-106 mg/dL Lactic Acid Level 0.7 0.4-2.0 mmol/L Calcium Level 9.7 8.7-10.4 mg/dL Total Bilirubin 0.3 0.2-1.0 mg/dL Aspartate Amino Transferase (AST) 23 13-40 U/L Alanine Aminotransferase (ALT) 30 7-40 U/L Alkaline Phosphatase 92 46-116 U/L Total Protein 7.6 5.7-8.2 g/dL Albumin 4.4 3.2-4.8 g/dL Lipase 38 12-53 U/L Beta HCG, Quantitative 0.1 L 1.5-4.2 mIU/mL Urine Color Light-yellow Yellow Urine Clarity Clear Clear Urine pH 6.5 5.0-9.0 Urine Specific [place] 1.013 1.001-1.035 Urine Protein Negative Negative Urine Ketones Negative Negative Urine Blood Negative Negative /uL Urine Nitrite Negative Negative Urine Bilirubin Negative Negative Urine Urobilinogen Normal Negative mg/dL Urine Leukocyte Esterase Negative Negative /uL Urine RBC 1 0 - 4 /hpf Urine Microscopic WBC < 1 0-5 /HPF Urine Squamous Epithelial Cells Few <5 /hpf Urine Bacteria None seen None Seen /hpf Urine Glucose Normal Normal mg/dL CT SCAN ABD PELVIS IMPRESSION: 1. No acute abdominal or pelvic findings. 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
[2024-11-06 21:00] VITALS: BP 117/54; PULSE 58; RESP 17; TEMP 97.6; O2SAT 97
[2024-11-06] MEDS: lamoTRIgine 25 MG TAB PO SCH (21:16)
[2024-11-07 01:00] VITALS: BP 120/57; PULSE 77; RESP 17; TEMP 97.7; O2SAT 100
[2024-11-07 05:00] VITALS: BP 119/80; PULSE 70; RESP 17; TEMP 97.8; O2SAT 98
[2024-11-07] MEDS: FLUoxetine HCL 20 MG CAP PO SCH (06:00)
[2024-11-07 06:23] LABS: Anion Gap 7 (5-15); Carbon Dioxide 27 mmol/L (20-31); Chloride 105 mmol/L (98-107); Sodium 139 mmol/L (136-145)
[2024-11-07 06:24] LABS: Basophils # (auto) 0 10 ^3/uL (0-0.2); Basophils % (auto) 0.5 % (0.0-2.0); Calcium 9.7 mg/dL (8.7-10.4); Eosinophils # (auto) 0.4 10 ^3/uL (0-0.8); Eosinophils % (auto) 4.1 % (0.0-7.0); Hematocrit 37.4 % (36.0-46.0); Hemoglobin 12.8 g/dL (12.2-16.2); Lymphocytes # (auto) 2.6 10 ^3/uL (0.4-5.4); Lymphocytes % (auto) 28.7 % (10.0-50.0); Mean Corpuscular Hemoglobin 28.8 pg (28.0-32.0); Mean Corpuscular Hgb Conc. 34.2 g/dL (32.0-36.0); Mean Corpuscular Volume 84.1 fL (80.0-100.0); Monocytes # (auto) 0.5 10 ^3/uL (0-1.3); Monocytes % (auto) 5.6 % (0.0-12.0); Neutrophils # (auto) 5.5 10 ^3/uL (1.6-8.6); Neutrophils % (auto) 61.1 % (37.0-80.0); Nucleated Red Blood Cells % 0.1 %; Platelet Count (auto) 281 10^3/uL (140-450); Red Blood Cells 4.45 10^6/uL (4.0-5.20); Red Cell Distribution Width 14.6 % (11.8-14.3)
[2024-11-07 06:28] LABS: Glucose 87 mg/dL (74-106)
[2024-11-07 06:33] LABS: Blood Urea Nitrogen 6 mg/dL (9-23)
--- NOTE | 2024-11-07 08:02 | ECG ---
[facility] Test Date: 2024-11-07 Test Time: 06:05:57 Pat Name: ARCHANA ORDONEZ Department: Respiratoy Room: [address] [place] [address] 4 Gender: F Heeler Machine: IMAN : 2005 Requested By: ALIA ESPINO Order Number: [id number] Reading MD: Measurements Intervals [place] Rate: 69 P: -5 CT: 161 QRS: 45 QRSD: 92 T: 25 QT: 395 QTc: 423 Interpretive Statements Sinus rhythm Low voltage, precordial leads Please click the below link to view image of tracing.
--- NOTE | 2024-11-07 08:02 | ECG ---
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
[2024-11-07 09:00] VITALS: BP 108/69; PULSE 61; RESP 18; TEMP 97.6; O2SAT 100
[2024-11-07 13:00] VITALS: BP 114/82; PULSE 62; RESP 17; TEMP 98.1; O2SAT 100
--- NOTE | 2024-11-07 15:24 | DVHDS2 ---
Discharge Summary Date of Admission November 06, 2024 at 04:37 Date of Discharge: November 07, 2024 Admitting Diagnosis Abdominal pain Labs/Diagnostic Data: Laboratory Results Test 11/07/24 05:25 11/06/24 20:20 11/05/24 20:40 11/05/24 20:20 White Blood Count 9.0 10^3/uL (4.4-10.8) Red Blood Count 4.45 10^6/uL (4.0-5.20) Hemoglobin 12.8 g/dL (12.2-16.2) Hematocrit 37.4 % (36.0-46.0) Mean Corpuscular Volume 84.1 fL (80.0-100.0) Mean Corpuscular Hemoglobin 28.8 pg (28.0-32.0) Mean Corpuscular Hemoglobin Concent 34.2 g/dL (32.0-36.0) Red Cell Distribution Width 14.6 % (11.8-14.3) Platelet Count 281 10^3/uL (140-450) Mean Platelet Volume 8.8 fL (6.9-10.8) Neutrophils (%) (Auto) 61.1 % (37.0-80.0) Lymphocytes (%) (Auto) 28.7 % (10.0-50.0) Monocytes (%) (Auto) 5.6 % (0.0-12.0) Eosinophils (%) (Auto) 4.1 % (0.0-7.0) Basophils (%) (Auto) 0.5 % (0.0-2.0) Neutrophils # (Auto) 5.5 10 ^3/uL (1.6-8.6) Lymphocytes # (Auto) 2.6 10 ^3/uL (0.4-5.4) Monocytes # (Auto) 0.5 10 ^3/uL (0-1.3) Eosinophils # (Auto) 0.4 10 ^3/uL (0-0.8) Basophils # (Auto) 0 10 ^3/uL (0-0.2) Nucleated Red Blood Cells 0.1 % Sodium Level 139 mmol/L (136-145) Potassium Level 4.0 mmol/L (3.5-5.1) Chloride Level 105 mmol/L (98-107) Carbon Dioxide Level 27 mmol/L (20-31) Anion Gap 7 (5-15) Blood Urea Nitrogen 6 mg/dL (9-23) Creatinine 0.60 mg/dL (0.550-1.02) Glomerular Filtration Rate Calc 132 mL/min (>90) BUN/Creatinine Ratio 10.0 (10.0-20.0) Serum Glucose 87 mg/dL (74-106) Calcium Level 9.7 mg/dL (8.7-10.4) Lactic Acid Level 0.7 mmol/L (0.4-2.0) Total Bilirubin 0.3 mg/dL (0.2-1.0) Aspartate Amino Transferase (AST) 23 U/L (13-40) Alanine Aminotransferase (ALT) 30 U/L (7-40) Alkaline Phosphatase 92 U/L (46-116) Total Protein 7.6 g/dL (5.7-8.2) Albumin 4.4 g/dL (3.2-4.8) Lipase 38 U/L (12-53) Beta HCG, Quantitative 0.1 mIU/mL (1.5-4.2) Urine Color Light-yellow (Yellow) Urine Clarity Clear (Clear) Urine pH 6.5 (5.0-9.0) Urine Specific [place] 1.013 (1.001-1.035) Urine Protein Negative (Negative) Urine Ketones Negative (Negative) Urine Blood Negative /uL (Negative) Urine Nitrite Negative (Negative) Urine Bilirubin Negative (Negative) Urine Urobilinogen Normal mg/dL (Negative) Urine Leukocyte Esterase Negative /uL (Negative) Urine RBC 1 /hpf (0 - 4) Urine Microscopic WBC < 1 /HPF (0-5) Urine Squamous Epithelial Cells Few /hpf (<5) Urine Bacteria None seen /hpf (None Seen) Urine Glucose Normal mg/dL (Normal) Other Laboratory Tests 11/07/24 05:25 Brief Hx & Hospital Course: History of Present Illness 19-year-old female presents for evaluation of abdominal pain. Patient reports diffuse abdominal pain that started today. Patient reports Wegovy for weight loss today. She has had multiple episodes of nausea and vomiting. Denies dysuria. No other acute complaints Course of hospitalization: Patient was started on clear liquid diet, IV hydration, as well as a trial of IV Reglan for her possible gastroparesis. Patient's symptoms improved over 24 hours. She is tolerating oral intake without any nausea or vomiting. Patient's diet has been advanced. Patient will be discharged home and instructed to follow up with her PCP in 1-2 weeks and to continue all previous home medications. Physical examination General: Alert and Oriented x3. No acute distress. Well-nourished. Eyes: EOMI. Anicteric. HENT: Moist mucous membranes. Lungs: Clear to auscultation bilaterally. No accessory muscle use. Cardiovascular: Regular rate and rhythm. No murmur. No JVD. Abdomen: Soft, non-tender and non-distended. No palpable masses. Extremities: No edema. Non-tender. Skin: No rashes or lesions. Warm. Neurologic: No focal neurological deficits. CN II-XII grossly intact, but not individually tested. Psychiatric: Cooperative. Appropriate mood and affect. Total time spent with patient discussing and formulating plan of care: 35 minutes. This medical document was created using an electronic medical record system with [employer] dictation system. Although this document has been carefully reviewed, there may still be some phonetic and typographical errors. These areas are purely typographical due to imperfections of the software programs, and do not reflect any compromise in the patient's medical care. Condition at Discharge: Fair Final Diagnosis/Problems List Abdominal pain secondary to follow gastroparesis from Wegovy Secondary diagnosis: -sirs response without organ dysfunction -obesity -schizophrenia -? Gastroparesis secondary to Wegovy injection -intractable nausea and vomiting Discharge Disposition: Home Discharge Instruct/Medications Diet: Regular Activity: No Restrictions, As Tolerated Follow Up/Referral: Follow up with PCP in 1-2 weeks Medications: Continue all home medications 36 Discharge Statement: "Patient was advised to return to the ER or call 911 if any headaches, dizziness, shortness of breath, chest pain, abdominal pain, bleeding, fevers, or worsening of medical condition. Patient was counseled about treatment plan, medications, possible side effects, patientverbalized understanding. All questions were answered to the best of my ability. This discharge took greater then 30 minutes in planning, reviewing documentation, counseling the patient, and discussing with other team members." ASSESSMENT ASSESSMENT Assessment Abdominal pain secondary to follow gastroparesis from Wegovy Date of Service: November 07, 2024 Billing Provider: ALIA ESPINO NP Common Visit Codes: 73048-GCJ/OBS DISCH DAY >30min ALIA ESPINO NP November 07, 2024 15:24
--- NOTE | 2024-11-07 15:43 | DVHPN2 ---
Progress Note - Dictate Date Seen: November 07, 2024 Medical Necessity Reason Pt with a Central, PICC or Fol: No Subjective No new complaints Patient feels well She is tolerating a diet No further episodes of nausea and vomiting Toxicology screen pending vital signs Vital Sign Date Time Temp Pulse Resp B/P (MAP) Pulse Ox O2 Delivery O2 Flow Rate FiO2 11/07/24 13:00 98.1 62 17 114/82 (93) 100 98.1 11/07/24 08:00 Room Air* 0 21 Total Intake and Output 11/06/24 11/06/24 11/07/24 15:00 23:00 07:00 Intake Total 675 ml 1200 ml 591 ml Output Total 800 ml Balance 675 ml 400 ml 591 ml medications Current Medications Medications Dose Ordered Sig/Reece Route Start Time Stop Time Status Last Admin Dose Admin Pantoprazole Sodium 40 mg DAILY IV 11/06/24 10:00 11/07/24 09:52 40 MG Acetaminophen/ Hydrocodone Bitart 1 tab Q4HP PRN PO 11/06/24 04:45 11/07/24 04:34 1 TAB Ondansetron HCl 4 mg Q4HP PRN IV 11/06/24 04:45 11/06/24 16:28 4 MG Acetaminophen 650 mg Q6HP PRN PO 11/06/24 04:45 Morphine Sulfate 2 mg Q6HPRN PRN IV 11/06/24 04:45 Metoclopramide HCl 10 mg Q8HR IV 11/06/24 14:00 11/07/24 06:00 10 MG Clonazepam 0.5 mg BIDPRN PRN PO 11/06/24 13:15 Fluoxetine HCl 60 mg QAM PO 11/07/24 07:00 11/07/24 06:00 60 MG Lamotrigine 50 mg HS PO 11/06/24 22:00 11/06/24 21:16 50 MG objective Gen: 19-year-old female in mild distress, obese Skin: Warm, dry, normal color and texture, no rash. HEENT: Normocephalic atraumatic, mucous membranes moist and pink. Neck: Cervical and supraclavicular nodes normal without enlargement, trachea is midline, thyroid gland is normal without masses. Pulmonary: Clear to auscultation and percussion bilaterally. Cardiac: Regular rate and rhythm. No murmur Abdomen: Soft, nontender, nondistended, bowel sounds present all 4 quadrants, no guarding, no rigidity, no organomegaly. Extremities: No cyanosis, clubbing, no edema Neuro: Cranial nerves II through XII grossly intact, normal affect and speech, no focal motor deficits. laboratory and microbiology Laboratory Tests 11/07/24 05:25 Test 11/07/24 05:25 Range/Units Serum Glucose 87 74-106 mg/dL Problems(with codes): (1) Nausea and vomiting (2) History of schizophrenia (3) Anxiety disorder (4) Abdominal pain Prognosis Plan Advance diet as tolerated Supportive care Discharge planning is in progress Patient can take Reglan 5 mg p.o. twice a day as needed for nausea and vomiting Outpatient follow up with GI Services as needed Plan discussed with: Patient, Other (Mother and Jose Nichols) HAROON GREENWOOD MD November 07, 2024 15:43
[2024-11-07 15:59] VITALS: BP 114/82; PULSE 62; RESP 17; TEMP 98.1; O2SAT 100
--- NOTE | 2024-11-08 08:21 | ECG ---
[facility] Test Date: 2024-11-07 Test Time: 08:59:07 Pat Name: ARCHANA ORDONEZ Department: Respiratoy Room: [address] [place] [address] 4 Gender: F [employer] Therapist: BHASKAR : 2005 Requested By: ALIA ESPINO Order Number: [id number] Reading MD: Measurements Intervals [place] Rate: 60 P: -38 RI: 174 QRS: 39 QRSD: 90 T: 23 QT: 396 QTc: 396 Interpretive Statements Sinus rhythm Low voltage, precordial leads Please click the below link to view image of tracing.
== END 2024-11-07 16:32 | disposition home or self-care (01) | DRG 254 ==
LOC: ER 20:11 → EDBD 20:11 → OVERFLOW 11-06 04:37 → TELE-EAST 11-06 18:34 → EAST 11-06 19:51
PROVIDERS: ADMIT Nurse Practitioner Acute Care; ATTEND Nurse Practitioner Acute Care
DX: K31.84 Gastroparesis (principal); R65.10 Systemic inflammatory response syndrome (SIRS) of non-infectious origin without acute organ dysfunction; T50.995A Adverse effect of other drugs, medicaments and biological substances, initial encounter; E66.9 Obesity, unspecified; F20.9 Schizophrenia, unspecified; Y92.89 Other specified places as the place of occurrence of the external cause; Z88.1 Allergy status to other antibiotic agents; Z79.899 Other long term (current) drug therapy; Z68.42 Body mass index [BMI] 45.0-49.9, adult
CPT/HCPCS: 36415; 74176; 80048; 80053; 81001; 83605; 83690; 84702; 85025; 93005; 96372; 96374; 96375; G0378; J1885; J2405; J2470; J3490

== ENCOUNTER 2024-12-13 07:50 | Emergency (ER) | payer MEDICAID ==
[~2024-12-13] VITALS: Ht 162.6 cm; Wt 128.2 kg
[~2024-12-13 07:50] MED LIST changes: +CLON0.5T4 PO; +DICY10CA PO; +FLUO-470 PO; +IBUP-1455 PO; +LAMO25TA27 PO
[2024-12-13 08:30] VITALS: BP 146/79; PULSE 87; RESP 17; TEMP 98.1; O2SAT 98
--- NOTE | 2024-12-13 09:09 | ED.PDOC ---
General HPI Comments 19-year-old female with a past medical history of schizophrenia, depression, anxiety presents to the emergency department with a chief complaint of dysuria onset 1 day. Patient states she has been experiencing dysuria with burning sensation, frequency, suprapubic pain radiating to low back for the past day. For the past 2 weeks, patient has noticed white vaginal discharge. About 1 month ago patient was diagnosed with UTI, was prescribed antibiotic, Nitrofurantoin, finished prescription 2 weeks ago. LMP was a few weeks ago, according to patient. No other symptoms or modifying factors present at this time. Denies fevers, chills, night sweats, nausea/vomiting Denies rashes Denies vaginal bleeding Denies dizziness Chief Complaint: Urinary Time Seen by MD: 08:45 Primary Care Provider: SHI MORA Reviewed notes: Nurses Notes, Medications, Allergies Allergies: Coded Allergies: Ciprofloxacin (Unverified Allergy, Mild, N/V, 07/17/24) Uncoded Allergies: KIWI (Allergy, Intermediate, 04/05/24) IYCHY RED Home Meds Active Scripts Dicyclomine Hcl (BENTYL CAPSULE) 10 Mg Cp, 2 CAP PO Q6HP PRN, #30 CAP 11 Refills Prn abdominal pain Prov:BEAU DIAZ MD 11/05/24 Ibuprofen Micronized (Ibuprofen) 800 Mg Tab, 800 MG PO Q8HP PRN, #30 TAB Prn pain, take with food. Prov:BEAU DIAZ MD 11/05/24 Reported Medications Clonazepam (Clonazepam) 0.5 Mg Tab, 1 TAB PO BIDPRN PRN 11/06/24 Lamotrigine (Lamotrigine) 25 Mg Tab, PO 11/06/24 Fluoxetine HCl (Fluoxetine HCl) 20 Mg Cap, 3 CAP PO QAM 11/06/24 Ubrogepant (Ubrelvy) Unknown Strength Tab, PO, TAB 07/17/24 Clonazepam (Klonopin) Unknown Strength Tab, PO DAILY, #30 TAB 07/17/24 Cholecalciferol (D3) Unknown Strength Chw, PO, TAB.CHEW 07/17/24 Citalopram Hydrobromide (Celexa) Unknown Strength Tab, PO DAILY, #30 TAB 2 Refills 07/17/24 Naproxen (NAPROSYN TABLET) Unknown Strength Tb, PO BID, #60 TAB 1 Refill 07/17/24 Sertraline Hcl (Sertraline Hcl) Unknown Strength Tab, PO DAILY, #30 TAB 2 Refills 07/17/24 Aripiprazole (Abilify) Unknown Strength Tab, PO DAILY, #30 TAB 2 Refills 07/17/24 Information Source: Patient Mode of Arrival: Ambulatory Severity: Moderate Timing: Days Duration: Since onset Prehospital treatment: None Onset: Spontaneous Symptoms: Dysuria, Frequency History of: None Location: Suprapubic Modifying factors: None associated signs and symptoms: Back Pain, Dysuria, Frequency Past Medical History PAST MEDICAL HISTORY: Anxiety, Depression, Schizophrenia Surgical History: Denies all surgeries BED LASTER History: No Pertinent BED LASTER History Family History Family History: No family hx of Cancer, No family hx of DM, No family hx of Heart micaela Social History Smoker: Non-Smoker Alcohol: Denies ETOH Use Drugs: Denies Drug Use Lives In: Home All Other Systems: Reviewed and Negative (As per HPI) Physical Exam General Appearance: No Apparent Distress, Normal HEENT: Normal ENT Inspection, Pharynx Normal, TMs Normal Neck: Full Range of Motion, Non-Tender, Normal, Normal Inspection Respiratory: Chest Non-Tender, Lungs Clear, No Accessory Muscle Use, No Respiratory Distress, Normal Breath Sounds Cardiovascular: No Edema, No JVD, No Murmur, No Gallop, Normal Peripheral Pulses, Regular Rate/Rhythm Breast Exam: Deferred Gastrointestinal: No Organomegaly, Non Tender, No Pulsatile Mass, Normal Bowel Sounds, Soft Genitalia: Deferred Pelvic: Deferred Rectal: Deferred Extremities: No calf tenderness, Normal capillary refill, Normal inspection, Normal range of motion, Non-tender, No pedal edema Musculoskeletal : Apperance: Normal Neurologic: Alert, senior process analyst II-XII nml as Tested, No Motor Deficits, Normal Affect, Normal Mood, No Sensory Deficits Cerebellar Function: Normal Reflexes: Normal Skin: Dry, Normal Color, Warm Lymphatic: No Adenopathy Was a procedure done? Was a procedure done?: No X-Ray, Labs, Meds, VS Vital Signs Date Time Temp Pulse Resp B/P (MAP) Pulse Ox O2 Delivery O2 Flow Rate FiO2 12/13/24 08:30 98.1 87 17 146/79 (101) 98 98.1 12/13/24 08:30 87 17 98 Room Air 12/13/24 08:01 98.1 87 16 146/79 (101) 98 98.1 Lab Test 12/13/24 09:00 12/13/24 08:03 Range/Units Vaginal WBC (Wet Prep) Rare Vaginal RBC (Wet Prep) None seen Vaginal Epithelial Cells (Wet Prep) Few Vaginal Bacteria (Wet Prep) Moderate Vaginal Trichomonas (Wet Prep) Not present Vaginal Yeast (Wet Prep) None seen Vaginal Clue Cells (Wet Prep) Few Urine Color Light-orange Yellow Urine Clarity Ex.turbid Clear Urine pH 7.0 5.0-9.0 Urine Specific [place] 1.033 1.001-1.035 Urine Protein Trace H Negative Urine Ketones Negative Negative Urine Blood Negative Negative /uL Urine Nitrite Negative Negative Urine Bilirubin Negative Negative Urine Urobilinogen Normal Negative mg/dL Urine Leukocyte Esterase Negative Negative /uL Urine RBC 7 0 - 4 /hpf Urine Microscopic WBC 6 H 0-5 /HPF Urine Squamous Epithelial Cells Mod <5 /hpf Urine Bacteria Few H None Seen /hpf Urine Mucus Few None Seen Urine Glucose Normal Normal mg/dL Urine Test Negative Negative X-Ray, Labs, Meds, VS Comment 19-year-old female with a past medical history of schizophrenia, depression, anxiety presents to the emergency department with a chief complaint of dysuria onset 1 day. Patient arrives alert and oriented, ABC's intact, afebrile, vital signs stable, saturating well in room air labs were ordered. Urinalysis was ordered to rule out UTI or hematuria. Wet mount PREGUA Labs in the ED showed (pertinent+ and then pertinent-) Additional MDM Review of External, Non-ED records: External records reviewed. Discussion with independent historian (EMS, family) history obtained from the patient/parents (if applicable) at bedside Chronic conditions affecting care: schizophrenia, anxiety, depression Social determinants of health affecting care: None Consideration of admission (observation or admission): I considered escalation of care to admission for this patient, however given the reassuring workup, the patient is safe for outpatient management. Time of 1ST Reevaluation: 09:15 Reevaluation 1ST: Improved Patient Education/Counseling: Diagnosis, Treatment Family Education/Counseling: No Family Present Departure 1 Departure Time of Disposition: 10:44 Impression: Primary Impression: Bacterial vaginitis Disposition: 01 HOME / SELF CARE / HOMELESS Condition: Stable e-Prescriptions Metronidazole (Metronidazole) 500 Mg Tab 500 MG PO BID for 7 Days, #14 TAB 0 Refills Prov: XAVI CRAMER NP 12/13/24 Discharged With: Self Critical Care Note Critical Care Time?: No Stability Stability form required: No Heart Score Heart Score: Heart Score Response (Comments) Value History N/A 0 EKG N/A 0 Age N/A 0 Risk Factors N/A 0 Troponin N/A 0 Total 0 I personally scribed for XAVI CRAMER NP ([email or web address]) on 12/13/24 at 09:09. Electronically submitted by Jackie Spann ([email or web address]). I personally scribed for XAVI CRAMER NP ([email or web address]) on 12/13/24 at 09:10. Electronically submitted by Jackie Spann ([email or web address]). XAVI CRAMER NP Dec 13, 2024 09:09
[2024-12-13 09:44] LABS: Vaginal Trichomonas Not Present
[2024-12-13 09:45] LABS: Vaginal Bacteria Moderate; Vaginal Clue Cells Few; Vaginal Epithelial Cells Few
[2024-12-13 10:18] LABS: Urine Bacteria FEW /hpf (None Seen); Urine Blood Negative /uL (Negative); Urine Clarity Ex.Turbid (Clear); Urine Color Light-Orange (Yellow); Urine Mucus FEW (None Seen); Urine Protein, UAD TRACE (Negative); Urine Specific Gravity 1.033 (1.001-1.035); Urine Squamous Epithelial Cell MOD /hpf (<5); Urine Urobilinogen Normal (Negative); Urine WBC 6 /HPF (0-5)
[2024-12-13] MEDS ORDERED: MET500T PO (10:44)
== END 2024-12-13 10:47 | disposition home or self-care (01) ==
LOC: ER 07:50
DX: N76.0 Acute vaginitis (principal); B96.89 Other specified bacterial agents as the cause of diseases classified elsewhere; F41.9 Anxiety disorder, unspecified; F32.A Depression, unspecified; F20.9 Schizophrenia, unspecified; Z88.1 Allergy status to other antibiotic agents; Z79.899 Other long term (current) drug therapy
CPT/HCPCS: 81001; 81025; 87210

== ENCOUNTER 2025-02-06 03:05 | Emergency (ER) | payer MEDICAID ==
[~2025-02-06] VITALS: Ht 162.6 cm; Wt 111.4 kg
[~2025-02-06 03:05] MED LIST changes: +MET500T PO
--- NOTE | 2025-02-06 04:01 | ED.PDOC ---
History of Present Illness(SKN HPI Comments Pt c/o rash to right elbow since 229. Noted small bumps to right elbow and itching. Pt reports pain is 5/10. Pt says she used 100% polyester blanket last night which is not what she usually sleeps with. Denies change in lotions, soaps, detergents. Denies chest pain, difficulty breathing, shortness of ileana ath, dizziness, nausea or vomiting. No throat swelling or difficulty swallowing. Chief Complaint: Rash Time Seen by MD: 03:08 Primary Care Provider: SHI MORA History of Present Illness: Nurses Notes, Medications, Allergies Allergies: Coded Allergies: Ciprofloxacin (Unverified Allergy, Mild, N/V, 07/17/24) Penicillins (Verified Allergy, Unknown, 02/06/25) Uncoded Allergies: KIWI (Allergy, Intermediate, 04/05/24) IYCHY RED Home Meds Active Scripts Metronidazole (Metronidazole) 500 Mg Tab, 500 MG PO BID for 7 Days, #14 TAB 0 Refills Prov:XAVI CRAMER HEAD OF INSIGHT 12/13/24 Dicyclomine Hcl (BENTYL CAPSULE) 10 Mg Cp, 2 CAP PO Q6HP PRN, #30 CAP 11 Refills Prn abdominal pain Prov:BEAU DIAZ MD 11/05/24 Ibuprofen Micronized (Ibuprofen) 800 Mg Tab, 800 MG PO Q8HP PRN, #30 TAB Prn pain, take with food. Prov:BEAU DIAZ MD 11/05/24 Reported Medications Clonazepam (Clonazepam) 0.5 Mg Tab, 1 TAB PO BIDPRN PRN 11/06/24 Lamotrigine (Lamotrigine) 25 Mg Tab, PO 11/06/24 Fluoxetine HCl (Fluoxetine HCl) 20 Mg Cap, 3 CAP PO QAM 11/06/24 Ubrogepant (Ubrelvy) Unknown Strength Tab, PO, TAB 07/17/24 Clonazepam (Klonopin) Unknown Strength Tab, PO DAILY, #30 TAB 07/17/24 Cholecalciferol (D3) Unknown Strength Chw, PO, TAB.CHEW 07/17/24 Citalopram Hydrobromide (Celexa) Unknown Strength Tab, PO DAILY, #30 TAB 2 Refills 07/17/24 Naproxen (NAPROSYN TABLET) Unknown Strength Tb, PO BID, #60 TAB 1 Refill 07/17/24 Sertraline Hcl (Sertraline Hcl) Unknown Strength Tab, PO DAILY, #30 TAB 2 Refills 07/17/24 Aripiprazole (Abilify) Unknown Strength Tab, PO DAILY, #30 TAB 2 Refills 07/17/24 Information Source: Patient Mode of Arrival: Ambulatory Past Medical History PAST MEDICAL HISTORY: Anxiety, Depression, Schizophrenia Surgical History: Denies all surgeries DIVISION ORDER ANALYST History: No Pertinent DIVISION ORDER ANALYST History Family History Family History: No family hx of Cancer, No family hx of DM, No family hx of Heart micaela Social History Smoker: Non-Smoker Alcohol: Denies ETOH Use Drugs: Denies Drug Use Lives In: Home Constitutional: denies: chills, diaphoresis, fatigue, fever, malaise, sweats, weakness, others EENTM: denies: blurred vision, double vision, ear bleeding, ear discharge, ear drainage, ear pain, ear ringing, eye pain, eye redness, hearing loss, mouth pain, mouth swelling, nasal discharge, nose bleeding, nose congestion, nose pain, photophobia, tearing, throat pain, throat swelling, voice changes, others Respiratory: denies: cough, hemoptysis, orthopnea, SOB at rest, shortness of breath, SOB with excertion, stridor, wheezing, others Cardiovascular: denies: chest pain, dizzy spells, diaphoresis, Dyspnea on exertion, edema, irregular heart beat, left arm pain, lightheadedness, palpitations, PND, syncope, others Gastrointestinal: denies: abdomen distended, abdominal pain, blood streaked bowels, constipated, diarrhea, dysphagia, difficulty swallowing, hematemesis, melena, nausea, poor appetite, poor fluid intake, rectal bleeding, rectal pain, vomiting, others Genitourinary: denies: abnormal vagina bleeding, burning, dyspareunia, dysuria, flank pain, frequency, hematuria, incontinence, pain, , vagina discharge, urgency, others Neurological: denies: dizziness, fainting, headache, left sided numbness, left sided weakness, numbness, paresthesia, pre-existing deficit, right sided numbness, right sided weakness, seizure, speech problems, tingling, tremors, weakness, others Musculoskeletal: denies: back pain, gout, joint pain, joint swelling, muscle pain, muscle stiffness, neck pain, others Integumetry: reports: rash (Right elbow); denies: bruises, change in color, change in hair/nails, dryness, laceration, lesions, lumps, wounds, others Allergic/Immunocompromised: denies: Difficulty Healing, Frequent Infections, Hives, Itching, others Hematologic/Lymphatic: denies: anemia, blood clots, easy bleeding, easy bruising, swollen glands, others Endocrine: denies: excessive hunger, excessive sweating, excessive thirst, excessive urination, flushing, intolerance to cold, intolerance to heat, un explained weight gain, unexplained weight loss, others Psychiatric: denies: anxiety, bipolar disorder, depression, hopeless, panic disorder, schizophrenia, sleepless, suicidal, others Physical Exam General Appearance: No Apparent Distress, Normal HEENT: Pharynx Normal Neck: Full Range of Motion Respiratory: Lungs Clear, No Respiratory Distress, Normal Breath Sounds Cardiovascular: No Murmur, Normal Peripheral Pulses, Regular Rate/Rhythm Breast Exam: Deferred Gastrointestinal: Non Tender, Normal Bowel Sounds, Soft Genitalia: Deferred Pelvic: Deferred Rectal: Deferred Extremities: Normal range of motion Musculoskeletal : Apperance: Normal Neurologic: Alert, No Motor Deficits, Normal Affect, Normal Mood, No Sensory Deficits Cerebellar Function: Normal Reflexes: NOT DONE Skin: Dry, Normal Color, Rash, Warm Lymphatic: No Adenopathy Was a procedure done? Was a procedure done?: No Differential Diagnosis (INTG) Differential Diagnosis: Abrasion, Cellulitis Differential Diagnosis: Abscess, Atopic dermatitis, Contact Dermatitis, Impetigo, Psoriasis, Tinea, Urticaria X-Ray, Labs, Meds, VS Vital Signs Date Time Temp Pulse Resp B/P (MAP) Pulse Ox O2 Delivery O2 Flow Rate FiO2 02/06/25 03:20 98.4 81 18 153/95 98 98.4 Current Medications Medications (Trade) Dose Ordered Sig/Reece Route Start Time Stop Time Status Last Admin Dexamethasone Sodium Phosphate (Decadron Injection) 10 mg ONCE ONCE PO 02/06/25 04:45 02/06/25 04:46 DC 02/06/25 04:44 Time of 1ST Reevaluation: 03:30 Reevaluation 1ST: Unchanged Patient Education/Counseling: Diagnosis, Treatment, Prognosis, Need For Follow Up Family Education/Counseling: No Family Present SEPSIS Sepsis Screen Date sepsis recognized/suspect: Feb 06, 2025 Time Sepsis recognized/suspect: 0323 Recent Procedure: No On Antibiotic Therapy: No Respiratory Rate >20: No Heart Rate >90: No Temp<36 C (96.8 F) or >38.3 C: No SBP <90 or MAP <65 mmHG: No New Acute Mental Status Change: No Is the patient on CPAP, BIPAP,: No Vital Signs Date Time Temp Pulse Resp B/P (MAP) Pulse Ox O2 Delivery O2 Flow Rate FiO2 02/06/25 03:20 98.4 81 18 153/95 98 98.4 Medications Medications Dose Ordered Sig/Reece Route Start Time Stop Time Status Last Admin Dose Admin Dexamethasone Sodium Phosphate 10 mg ONCE ONCE PO 02/06/25 04:45 02/06/25 04:46 DC 02/06/25 04:44 Departure 1 Departure Time of Disposition: 04:43 Impression: Primary Impression: Contact dermatitis Qualified Codes: L23.9 - Allergic contact dermatitis, unspecified cause Disposition: 01 HOME / SELF CARE / HOMELESS Condition: Stable e-Prescriptions Betamethasone Dipropionate (Betamethasone Dipropionat) 0.05 % Cre 0.05 % EX BID for 6 Days, #15 GRAMS Prov: CRIS ABAD 02/06/25 Discharged With: Self Critical Care Note Critical Care Time?: No Stability Stability form required: CRIS Hallman Feb 06, 2025 04:01
[2025-02-06] MEDS ORDERED: DIP005TP EX (04:50)
[2025-02-06 04:54] VITALS: BP 153/95; PULSE 81; RESP 18; TEMP 98.4; O2SAT 98
== END 2025-02-06 04:56 | disposition home or self-care (01) ==
LOC: ER 03:05
DX: L23.9 Allergic contact dermatitis, unspecified cause (principal); F32.A Depression, unspecified; F41.9 Anxiety disorder, unspecified; Z79.899 Other long term (current) drug therapy; Z88.0 Allergy status to penicillin; Z88.1 Allergy status to other antibiotic agents
CPT/HCPCS: 99283; J1100

== ENCOUNTER 2025-02-21 02:37 | Inpatient (IN) | payer MEDICAID ==
[~2025-02-21] VITALS: Ht 162.6 cm; Wt 129.0 kg
--- NOTE | 2025-02-21 02:54 | ED.PDOC ---
GI ASSESSMENT HPI Comments 19 year old female presents to the ED via EMS with a chief complaint of abdominal pain onset around 00:30. She began experiencing diffused abdominal pain radiates down bilateral legs. She has been experiencing diarrhea for the past 2 weeks. PMHx schizophrenia, anxiety, depression. Denies nausea, vomiting, fever, chills, chest pain, shortness of breath, dizziness, headache, blurry vision, hematemesis, melena. No other symptoms or modifying factors present at this time. Chief Complaint: Abdominal Pain Time Seen by MD: 02:50 Primary Care Provider: SHI MORA Reviewed Notes: Medications, Allergies Allergies: Coded Allergies: Ciprofloxacin (Unverified Allergy, Mild, N/V, 07/17/24) Penicillins (Verified Allergy, Unknown, 02/06/25) Uncoded Allergies: KIWI (Allergy, Intermediate, 04/05/24) IYCHY RED Home Meds Active Scripts Metronidazole (Metronidazole) 500 Mg Tab, 500 MG PO BID for 7 Days, #14 TAB 0 Refills Prov:XAVI CRAMER ENLISTED ADVISOR 12/13/24 Dicyclomine Hcl (BENTYL CAPSULE) 10 Mg Cp, 2 CAP PO Q6HP PRN, #30 CAP 11 Refills Prn abdominal pain Prov:BEAU DIAZ MD 11/05/24 Ibuprofen Micronized (Ibuprofen) 800 Mg Tab, 800 MG PO Q8HP PRN, #30 TAB Prn pain, take with food. Prov:BEAU DIAZ MD 11/05/24 Reported Medications Clonazepam (Clonazepam) 0.5 Mg Tab, 1 TAB PO BIDPRN PRN 11/06/24 Lamotrigine (Lamotrigine) 25 Mg Tab, PO 11/06/24 Fluoxetine HCl (Fluoxetine HCl) 20 Mg Cap, 3 CAP PO QAM 11/06/24 Ubrogepant (Ubrelvy) Unknown Strength Tab, PO, TAB 07/17/24 Clonazepam (Klonopin) Unknown Strength Tab, PO DAILY, #30 TAB 07/17/24 Cholecalciferol (D3) Unknown Strength Chw, PO, TAB.CHEW 07/17/24 Citalopram Hydrobromide (Celexa) Unknown Strength Tab, PO DAILY, #30 TAB 2 Refills 07/17/24 Naproxen (NAPROSYN TABLET) Unknown Strength Tb, PO BID, #60 TAB 1 Refill 07/17/24 Sertraline Hcl (Sertraline Hcl) Unknown Strength Tab, PO DAILY, #30 TAB 2 Refills 07/17/24 Aripiprazole (Abilify) Unknown Strength Tab, PO DAILY, #30 TAB 2 Refills 07/17/24 Information Source: Patient, Emergency Med Personnel Mode of Arrival: EMS Timing: Hours Duration: Since onset Prehospital treatment: None Quality: Sharp Vomitus: None Stool: Loose Severity: Moderate Recent: None Recent Hx of: None Pain Location: Diffuse Modifying Factors: Nothing Associated sign and symptoms: Diarrhea, Abdominal Pain Past Medical History PAST MEDICAL HISTORY: Anxiety, Depression, Schizophrenia Surgical History: Denies all surgeries HAIR WORKER History: No Pertinent HAIR WORKER History Family History Family History: No family hx of Cancer, No family hx of DM, No family hx of Heart micaela Social History Smoker: Non-Smoker Alcohol: Denies ETOH Use Drugs: Denies Drug Use Lives In: Home Constitutional: denies: chills, diaphoresis, fatigue, fever, malaise, sweats, weakness, others EENTM: denies: blurred vision, double vision, ear bleeding, ear discharge, ear drainage, ear pain, ear ringing, eye pain, eye redness, hearing loss, mouth pain, mouth swelling, nasal discharge, nose bleeding, nose congestion, nose pain, photophobia, tearing, throat pain, throat swelling, voice changes, others Respiratory: denies: cough, hemoptysis, orthopnea, SOB at rest, shortness of breath, SOB with excertion, stridor, wheezing, others Cardiovascular: denies: chest pain, dizzy spells, diaphoresis, Dyspnea on ex ertion, edema, irregular heart beat, left arm pain, lightheadedness, palpitations, PND, syncope, others Gastrointestinal: reports: abdominal pain, diarrhea; denies: abdomen distended, blood streaked bowels, constipated, dysphagia, difficulty swallowing, hematemesis, melena, nausea, poor appetite, poor fluid intake, rectal bleeding, rectal pain, vomiting, others Genitourinary: denies: abnormal vagina bleeding, burning, dyspareunia, dysuria, flank pain, frequency, hematuria, incontinence, pain, , vagina discharge, urgency, others Neurological: denies: dizziness, fainting, headache, left sided numbness, left sided weakness, numbness, paresthesia, pre-existing deficit, right sided numbness, right sided weakness, seizure, speech problems, tingling, tremors, weakness, others Musculoskeletal: denies: back pain, gout, joint pain, joint swelling, muscle pain, muscle stiffness, neck pain, others Integumetry: denies: bruises, change in color, change in hair/nails, dryness, laceration, lesions, lumps, rash, wounds, others Allergic/Immunocompromised: denies: Difficulty Healing, Frequent Infections, Hives, Itching, others Hematologic/Lymphatic: denies: anemia, blood clots, easy bleeding, easy bruisi ng, swollen glands, others Endocrine: denies: excessive hunger, excessive sweating, excessive thirst, exce ssive urination, flushing, intolerance to cold, intolerance to heat, unexplained weight gain, unexplained weight loss, others Psychiatric: denies: anxiety, bipolar disorder, depression, hopeless, panic disorder, schizophrenia, sleepless, suicidal, others All Other Systems: Reviewed and Negative Physical Exam General Appearance: Normal HEENT: Normal ENT Inspection, Pharynx Normal, TMs Normal Neck: Full Range of Motion, Non-Tender, Normal, Normal Inspection Respiratory: Chest Non-Tender, Lungs Clear, No Accessory Muscle Use, No Respiratory Distress, Normal Breath Sounds Cardiovascular: No Edema, No JVD, No Murmur, No Gallop, Normal Peripheral Pulses, Regular Rate/Rhythm Breast Exam: Deferred Gastrointestinal: No Organomegaly, Non Tender, No Pulsatile Mass, Normal Bowel Sounds, Soft Genitalia: Deferred Pelvic: Deferred Rectal: Deferred Extremities: No calf tenderness, Normal capillary refill, Normal inspection, Normal range of motion, Non-tender, No pedal edema Musculoskeletal : Apperance: Normal Neurologic: Alert, catering manager II-XII nml as Tested, No Motor Deficits, Normal Affect, Normal Mood, No Sensory Deficits Cerebellar Function: Normal Reflexes: Normal Skin: Dry, Normal Color, Warm Lymphatic: No Adenopathy Was a procedure done? Was a procedure done?: No GI differential Dx Differential Diagnosis: Appendicitis, Bowel Obstruction, Constipation, Diverticular disease, Pancreatitis, UTI, Kidney Stone, Other X-Ray, Labs, Meds, VS Vital Signs Date Time Temp Pulse Resp B/P (MAP) Pulse Ox O2 Delivery O2 Flow Rate FiO2 02/21/25 04:48 82 16 129/69 02/21/25 02:40 98.5 77 18 117/74 99 98.5 Lab Test 02/21/25 03:11 02/21/25 03:05 Range/Units White Blood Count 19.6 H 4.4-10.8 10^3/uL Red Blood Count 4.68 4.0-5.20 10^6/uL Hemoglobin 13.5 12.2-16.2 g/dL Hematocrit 39.7 36.0-46.0 % Mean Corpuscular Volume 84.8 80.0-100.0 fL Mean Corpuscular Hemoglobin 28.8 28.0-32.0 pg Mean Corpuscular Hemoglobin Concent 34.0 32.0-36.0 g/dL Red Cell Distribution Width 14.3 11.8-14.3 % Platelet Count 330 140-450 10^3/uL Mean Platelet Volume 9.2 6.9-10.8 fL Neutrophils (%) (Auto) 77.1 37.0-80.0 % Lymphocytes (%) (Auto) 16.6 10.0-50.0 % Monocytes (%) (Auto) 5.5 0.0-12.0 % Eosinophils (%) (Auto) 0.3 0.0-7.0 % Basophils (%) (Auto) 0.5 0.0-2.0 % Neutrophils # (Auto) 15.1 H 1.6-8.6 10 ^3/uL Lymphocytes # (Auto) 3.2 0.4-5.4 10 ^3/uL Monocytes # (Auto) 1.1 0-1.3 10 ^3/uL Eosinophils # (Auto) 0.1 0-0.8 10 ^3/uL Basophils # (Auto) 0.1 0-0.2 10 ^3/uL Nucleated Red Blood Cells 0.0 % Sodium Level 140 136-145 mmol/L Potassium Level 3.5 3.5-5.1 mmol/L Chloride Level 105 98-107 mmol/L Carbon Dioxide Level 24 20-31 mmol/L Anion Gap 11 5-15 Blood Urea Nitrogen 7 L 9-23 mg/dL Creatinine 0.59 0.550-1.02 mg/dL Glomerular Filtration Rate Calc 132 >90 mL/min BUN/Creatinine Ratio 11.9 10.0-20.0 Serum Glucose 111 H 74-106 mg/dL Calcium Level 9.7 8.7-10.4 mg/dL Total Bilirubin 0.5 0.2-1.0 mg/dL Aspartate Amino Transferase (AST) 16 13-40 U/L Alanine Aminotransferase (ALT) 22 7-40 U/L Alkaline Phosphatase 91 46-116 U/L Total Protein 8.0 5.7-8.2 g/dL Albumin 4.5 3.2-4.8 g/dL Lipase 32 12-53 U/L Urine Color Light-orange Yellow Urine Clarity Ex.turbid Clear Urine pH 6.0 5.0-9.0 Urine Specific [place] 1.035 1.001-1.035 Urine Protein Trace H Negative Urine Ketones 1+ H Negative Urine Blood Negative Negative /uL Urine Nitrite Negative Negative Urine Bilirubin Negative Negative Urine Urobilinogen Normal Negative mg/dL Urine Leukocyte Esterase Negative Negative /uL Urine RBC None seen 0 - 4 /hpf Urine Microscopic WBC < 1 0-5 /HPF Urine Squamous Epithelial Cells Few <5 /hpf Urine Amorphous Crystals Mod None Seen /hpf Urine Bacteria None seen None Seen /hpf Urine Glucose Normal Normal mg/dL Urine Test Negative Negative Current Medications Medications (Trade) Dose Ordered Sig/Reece Route Start Time Stop Time Status Last Admin Ondansetron HCl (Zofran) 4 mg ONCE ONCE IV 02/21/25 03:00 02/21/25 03:01 DC 02/21/25 04:47 Sodium Chloride 1,000 ml @ 1,000 mls/hr Q1H ONCE IVB 02/21/25 03:00 02/21/25 03:59 DC 02/21/25 04:48 Morphine Sulfate 4 mg ONCE ONCE IV 02/21/25 03:00 02/21/25 03:01 DC 02/21/25 04:48 Time of 1ST Reevaluation: 03:20 Reevaluation 1ST: Unchanged Patient Education/Counseling: Diagnosis, Treatment, Prognosis Family Education/Counseling: No Family Present SEPSIS Sepsis Screen Physician Orders Ct Ab Pel With Iv Con Only (02/21/25 02:53) Vital Signs Date Time Temp Pulse Resp B/P (MAP) Pulse Ox O2 Delivery O2 Flow Rate FiO2 02/21/25 04:48 82 16 129/69 02/21/25 02:40 98.5 77 18 117/74 99 98.5 Laboratory Tests Test 02/21/25 03:11 White Blood Count 19.6 10^3/uL (4.4-10.8) H Medications Medications Dose Ordered Sig/Reece Route Start Time Stop Time Status Last Admin Dose Admin Morphine Sulfate 4 mg ONCE ONCE IV 02/21/25 03:00 02/21/25 03:01 DC 02/21/25 04:48 Ondansetron HCl 4 mg ONCE ONCE IV 02/21/25 03:00 02/21/25 03:01 DC 02/21/25 04:47 Sodium Chloride 1,000 ml @ 1,000 mls/hr Q1H ONCE IVB 02/21/25 03:00 02/21/25 03:59 DC 02/21/25 04:48 Departure 1 Departure Time of Disposition: 05:27 Impression: Primary Impression: Intractable diarrhea Additional Impression: Dehydration Disposition: ADMITTED INPATIENT Admit to: Med Surg Condition: Guarded Comments Lab results reviewed. White blood cell count high at 19. Urinalysis has ketones in the urine. Electrolytes look okay. CT of the abdomen and pelvis shows no acute pathology. Patient is still feels malaise and abdominal pain and is having diarrhea on re-evaluation. I ordered IV fluids and will plan to admit the patient for IV hydration and further workup and supportive care Critical Care Note Critical Care Time?: No Stability Stability form required: No Heart Score Heart Score: Heart Score Response (Comments) Value History N/A 0 EKG N/A 0 Age N/A 0 Risk Factors N/A 0 Troponin N/A 0 Total 0 I personally scribed for JULIO MARTINEZ MD ([email or web address]) on 02/21/25 at 02:54. Electronically submitted by Jackie Spann ([email or web address]). JULIO MARTINEZ MD Feb 21, 2025 02:54
[2025-02-21 03:41] LABS: Hematocrit 39.7 % (36.0-46.0); Hemoglobin 13.5 g/dL (12.2-16.2); Mean Corpuscular Hemoglobin 28.8 pg (28.0-32.0); Mean Corpuscular Volume 84.8 fL (80.0-100.0); Nucleated Red Blood Cells % 0.0 %
[2025-02-21 03:48] LABS: Alanine Aminotransferase 22 U/L (7-40); Albumin 4.5 g/dL (3.2-4.8); Alkaline Phosphatase 91 U/L (46-116); Anion Gap 11 (5-15); BUN/Creatinine Ratio 11.9 (10.0-20.0); Bilirubin, Total 0.5 mg/dL (0.2-1.0); Calcium 9.7 mg/dL (8.7-10.4); Carbon Dioxide 24 mmol/L (20-31); Chloride 105 mmol/L (98-107); Lipase 32 U/L (12-53); Potassium 3.5 mmol/L (3.5-5.1); Sodium 140 mmol/L (136-145); Total Protein 8.0 g/dL (5.7-8.2)
[2025-02-21 03:55] LABS: Blood Urea Nitrogen 7 mg/dL (9-23); Glucose 111 mg/dL (74-106)
[2025-02-21 04:12] LABS: Urine Amorphous Crystal MOD /hpf (None Seen); Urine Protein, UAD TRACE (Negative)
[2025-02-21] MEDS: ONDANSETRON HCL 4 MG/2 ML VIAL IV ONE (04:47)
[2025-02-21] MEDS: MORPHINE SULFATE 4 MG/ML SYR/VIAL IV ONE (04:48)
[2025-02-21] MEDS: SODIUM CHLORIDE 0.9% 1,000 ML IVB ONE (04:48)
--- NOTE | 2025-02-21 05:09 | DVH ---
Exam: CT CT AB PEL WITH IV CON ONLY History: abd pain Comparison Study: CT CT AB PEL WO CON-NO ORAL OR IV on DOS: 11/05/24, CT CT AB PEL WITH IV CON ONLY on DOS: 02/05/24 TECHNIQUE: Multidetector CT of the abdomen was performed from lung bases to pubic symphysis. Imaging was performed without IV contrast. Axial, coronal and sagittal multiplanar reformats were obtained fr om the axial data set by the technologist. Radiation Dose Information: Dose-length product is 1560 mGy*cm FINDINGS: Limited sections of the lung bases demonstrate no focal pulmonary mass. The liver, spleen, pancreas, and both adrenal glands demonstrate no acute findings. The gallbladder is unremarkable. The stomach is unremarkable. The small bowel loops are not dilated. The appendix is normal. No colonic obstruction. Bilateral kidneys are unremarkable. No hydronephrosis. The urinary bladder is not distended. No significant lymphadenopathy. No free air or free fluid. The aorta and IVC demonstrate no acute findings. Left ovarian cyst measuring 3.4 x 2.8 cm. Visualized osseous structures demonstrate no acute abnormality. IMPRESSION: 1. No acute intra-abdominal process.
[2025-02-21 08:48] VITALS: PULSE 84; RESP 19; O2SAT 96
[2025-02-21] MEDS ORDERED: CHOL200043 PO (09:25)
[2025-02-21] MEDS ORDERED: QUET50TA27 PO (09:25)
[2025-02-21] MEDS ORDERED: CARB100T4 PO (09:25)
[2025-02-21] MEDS ORDERED: PANT40T PO (09:25)
[2025-02-21] MEDS ORDERED: DOCUSATE SOD 100 MG CAP PO PRN (09:30)
--- NOTE | 2025-02-21 09:39 | DVHHP2 ---
History of Present Illness Reason for Visit: Abdominal Pain History of Present Illness Vanesa Zheng is a 19-year-old female with past medical history of anxiety, depression, bipolar, and schizophrenia, who came to the hospital with complaints of abdominal pain. Patient states her abdominal pain began this morning about 0030. That it woke her up from her sleep. When the pain was not improving she called EMS 0230 to bring her to the hospital. She describes the pain as sharp, and states it starts in her epigastric region and goes all the way down to her toes, with associated nausea and diarrhea. She has had diarrhea for 2 days. States she last ate yesterday 02/20/2025 at 1900. Psych: Anxiety, Bipolar, Depression, Schizophrenia Past Surgical History: None Smoke: No ALCOHOL: none Drugs: None Lives: with Family Domestic Violence: Neg Review of Systems Constitutional: No: Fever, Chills, Sweats, Weakness, Malaise, Other Eyes: No: Pain, Vision change, Conjunctivae inflammation, Eyelid inflammation, Other, Redness ENT: No: Ear pain, Ear discharge, Nose pain, Nose discharge, Nose congestion, Mouth pain, Mouth swelling, Throat pain, Throat swelling, Other Respiratory: No: Cough, Dry, Shortness of breath, SOB with excertion, Wheezing, Hemoptysis, Pleuritic Pain, Sputum, Wheezing, Other Cardiovascular: No: Chest Pain, Palpitations, Orthopnea, Paroxysmal Noc. Dyspnea, Edema, Lt Headedness, Other Gastrointestinal: Nausea, Abdominal Pain, Diarrhea; No: Vomiting, Constipation, Melena, Hematochezia, Other Genitourinary: No Dysuria, No Frequency, No Incontinence, No Hematuria, No Retention, No Other Musculoskeletal: No: other, neck pain, shoulder pain, arm pain, back pain, hand pain, leg pain, foot pain Skin: No: Rash, Lesions, Jaundice, Bruising, Other Neurological: No: Weakness, Numbness, Incoordination, Change in speech, Confusion, Seizures, Other Allergies: Coded Allergies: Ciprofloxacin (Unverified Allergy, Mild, N/V, 07/17/24) Lamotrigine (Verified Allergy, Unknown, 02/21/25) Penicillins (Verified Allergy, Unknown, 02/06/25) Uncoded Allergies: KIWI (Allergy, Intermediate, 04/05/24) IYCHY RED wegovy (Allergy, Mild, 02/21/25) Exam Vital Signs Vital Signs Date Time Temp Pulse Resp B/P (MAP) Pulse Ox O2 Delivery O2 Flow Rate FiO2 02/21/25 08:48 84 19 96 Room Air* 0 21 02/21/25 08:33 98.2 135/69 (91) 98.2 General Appearance: Alert, Oriented X3, Cooperative, mild distress HEENT: Atraumatic, PERRLA Respiratory: Clear to auscultation, Normal air movement Cardiovascular: Regular rate, Normal S1, Normal S2, No murmurs Abdominal: Soft, Other (epigastric pain) Extremities: No clubbing, No cyanosis, No edema, Normal pulses, No tenderness/swelling Skin: No rashes, No breakdown, No significant lesion Neuro: Normal gait, Normal speech, Strength at 5/5 X4 ext, Normal tone Psych/Mental Status: Mental status NL, Mood NL Labs/Xrays Labs Test 02/21/25 05:51 02/21/25 03:11 02/21/25 03:05 Range/Units Lactic Acid Level 1.0 0.4-2.0 mmol/L White Blood Count 19.6 H 4.4-10.8 10^3/uL Red Blood Count 4.68 4.0-5.20 10^6/uL Hemoglobin 13.5 12.2-16.2 g/dL Hematocrit 39.7 36.0-46.0 % Mean Corpuscular Volume 84.8 80.0-100.0 fL Mean Corpuscular Hemoglobin 28.8 28.0-32.0 pg Mean Corpuscular Hemoglobin Concent 34.0 32.0-36.0 g/dL Red Cell Distribution Width 14.3 11.8-14.3 % Platelet Count 330 140-450 10^3/uL Mean Platelet Volume 9.2 6.9-10.8 fL Neutrophils (%) (Auto) 77.1 37.0-80.0 % Lymphocytes (%) (Auto) 16.6 10.0-50.0 % Monocytes (%) (Auto) 5.5 0.0-12.0 % Eosinophils (%) (Auto) 0.3 0.0-7.0 % Basophils (%) (Auto) 0.5 0.0-2.0 % Neutrophils # (Auto) 15.1 H 1.6-8.6 10 ^3/uL Lymphocytes # (Auto) 3.2 0.4-5.4 10 ^3/uL Monocytes # (Auto) 1.1 0-1.3 10 ^3/uL Eosinophils # (Auto) 0.1 0-0.8 10 ^3/uL Basophils # (Auto) 0.1 0-0.2 10 ^3/uL Nucleated Red Blood Cells 0.0 % Sodium Level 140 136-145 mmol/L Potassium Level 3.5 3.5-5.1 mmol/L Chloride Level 105 98-107 mmol/L Carbon Dioxide Level 24 20-31 mmol/L Anion Gap 11 5-15 Blood Urea Nitrogen 7 L 9-23 mg/dL Creatinine 0.59 0.550-1.02 mg/dL Glomerular Filtration Rate Calc 132 >90 mL/min BUN/Creatinine Ratio 11.9 10.0-20.0 Serum Glucose 111 H 74-106 mg/dL Calcium Level 9.7 8.7-10.4 mg/dL Total Bilirubin 0.5 0.2-1.0 mg/dL Aspartate Amino Transferase (AST) 16 13-40 U/L Alanine Aminotransferase (ALT) 22 7-40 U/L Alkaline Phosphatase 91 46-116 U/L Total Protein 8.0 5.7-8.2 g/dL Albumin 4.5 3.2-4.8 g/dL Lipase 32 12-53 U/L Urine Color Light-orange Yellow Urine Clarity Ex.turbid Clear Urine pH 6.0 5.0-9.0 Urine Specific [place] 1.035 1.001-1.035 Urine Protein Trace H Negative Urine Ketones 1+ H Negative Urine Blood Negative Negative /uL Urine Nitrite Negative Negative Urine Bilirubin Negative Negative Urine Urobilinogen Normal Negative mg/dL Urine Leukocyte Esterase Negative Negative /uL Urine RBC None seen 0 - 4 /hpf Urine Microscopic WBC < 1 0-5 /HPF Urine Squamous Epithelial Cells Few <5 /hpf Urine Amorphous Crystals Mod None Seen /hpf Urine Bacteria None seen None Seen /hpf Urine Glucose Normal Normal mg/dL Urine Test Negative Negative Exam: CT CT AB PEL WITH IV CON ONLY FINDINGS: Limited sections of the lung bases demonstrate no focal pulmonary mass. The liver, spleen, pancreas, and both adrenal glands demonstrate no acute findings. The gallbladder is unremarkable. The stomach is unremarkable. The small bowel loops are not dilated. The appendix is normal. No colonic obstruction. Bilateral kidneys are unremarkable. No hydronephrosis. The urinary bladder is not distended. No significant lymphadenopathy. No free air or free fluid. The aorta and IVC demonstrate no acute findings. Left ovarian cyst measuring 3.4 x 2.8 cm. Visualized osseous structures demonstrate no acute abnormality. IMPRESSION: 1. No acute intra-abdominal process. SEPSIS Sepsis Screen Date sepsis recognized/suspect: Feb 21, 2025 Time Sepsis recognized/suspect: 239 Recent Procedure: No On Antibiotic Therapy: No Respiratory Rate >20: No Heart Rate >90: No Temp<36 C (96.8 F) or >38.3 C: No SBP <90 or MAP <65 mmHG: No New Acute Mental Status Change: No Is the patient on CPAP, BIPAP,: No Physician Orders Ct Ab Pel With Iv Con Only (02/21/25 02:53) Blood Culture (02/21/25 05:29) Admit (02/21/25 09:17) Code Status (02/21/25 09:17) Ondansetron Hcl (Zofran) (02/21/25 09:30) Docusate Sodium Capsule (Colace Capsule) (02/21/25 09:30) Complete Blood Count (02/22/25 04:00) Comprehensive Metabolic Panel (02/22/25 04:00) Condition: Serious (02/21/25 09:17) Acetaminophen Tablet (Tylenol Tablet) (02/21/25 09:30) Clear Liq Diet (02/21/25 Breakfast) NS (02/21/25 09:30) Metronidazole Ivpb Flagyl (02/21/25 14:00) Metronidazole Ivpb Flagyl (02/21/25 09:30) Ceftriaxone Ivpb Rocephin (02/22/25 09:00) Vital Signs Date Time Temp Pulse Resp B/P (MAP) Pulse Ox O2 Delivery O2 Flow Rate FiO2 02/21/25 08:48 84 19 96 Room Air* 0 21 02/21/25 08:33 98.2 65 16 135/69 (91) 96 98.2 02/21/25 05:54 80 16 121/87 02/21/25 05:34 98.8 82 16 129/69 (89) 96 98.8 02/21/25 04:48 82 16 129/69 8/20/25 02:40 98.5 77 18 117/74 99 98.5 Laboratory Tests Test 02/21/25 03:11 02/21/25 05:51 White Blood Count 19.6 10^3/uL (4.4-10.8) H Lactic Acid Level 1.0 mmol/L (0.4-2.0) Medications Medications Dose Ordered Sig/Reece Route Start Time Stop Time Status Last Admin Dose Admin Morphine Sulfate 4 mg ONCE ONCE IV 02/21/25 03:00 02/21/25 03:01 DC 02/21/25 04:48 4 MG Ondansetron HCl 4 mg ONCE ONCE IV 02/21/25 03:00 02/21/25 03:01 DC 02/21/25 04:47 4 MG Sodium Chloride 1,000 ml @ 1,000 mls/hr Q1H ONCE IVB 02/21/25 03:00 02/21/25 03:59 DC 02/21/25 04:48 1,000 MLS/HR Assessment/Plan Assessment/Plan Assessment: Intractable diarrhea, Possible enteritis, Leukocytosis, Schizophrenia, Bipolar, Depression, Anxiety, Plan: Admit to Med-Surg, IV antibiotics, IV hydration, Clear liquid diet, Consider GI consult if symptoms persist, Plan discussed with: Patient My Orders Orders - JAJA TREADWELL Procedure Category Date Status Time Admit ADMIT 02/21/25 Verified 09:17 Code Status CODE 02/21/25 Verified 09:17 Ondansetron Hcl PHA 02/21/25 Verified (Zofran) 09:30 Docusate Sodium PHA 02/21/25 Verified Capsule (Colace 09:30 Complete Blood Count LAB 02/22/25 Verified 04:00 Comprehensive LAB 02/22/25 Verified Metabolic Panel 04:00 Condition: Serious MAURIZIO 02/21/25 Verified 09:17 Acetaminophen Tablet PHA 02/21/25 Verified (Tylenol Tablet) 09:30 Clear Liq Diet DIET 02/21/25 Verified Breakfast NS PHA 02/21/25 Verified 09:30 Metronidazole Ivpb PHA 02/21/25 Verified Flagyl 14:00 Metronidazole Ivpb PHA 02/21/25 Verified Flagyl 09:30 Ceftriaxone Ivpb PHA 02/22/25 Verified Rocephin 09:00 Date of Service: Feb 21, 2025 Billing Provider: JAJA TREADWELL Common Visit Codes: [id number] INP/OBS CARE (MOD) JAJA TREADWELL Feb 21, 2025 09:39
[2025-02-21 10:00] VITALS: BP 127/77; PULSE 55; RESP 18; TEMP 97.5; O2SAT 96
[2025-02-21] MEDS: cefTRIAXone 1GM/50ML D5W 50 ML IV ONE (10:05)
[2025-02-21] MEDS: CHOLECALCIFEROL (VITD3) 1,000UNIT=25mCg TAB PO SCH (10:06)
[2025-02-21] MEDS: PANTOPRAZOLE 40 MG TAB PO SCH (10:06)
[2025-02-21] MEDS: SODIUM CHLORIDE 0.9% 1,000 ML IV SCH (10:06)
[2025-02-21 14:00] VITALS: BP 124/72; PULSE 57; RESP 18; TEMP 97.8; O2SAT 95
[2025-02-21 16:00] VITALS: PULSE 61; RESP 18; O2SAT 95
[2025-02-21] MEDS: clonazePAM 0.5 MG TAB PO PRN (19:04)
[2025-02-21 20:00] VITALS: RESP 18
[2025-02-21 21:00] VITALS: BP 112/73; PULSE 60; RESP 18; TEMP 98.4; O2SAT 100
[2025-02-22] MEDS: ACETAMINOPHEN 325 MG TAB PO PRN (04:58)
[2025-02-22 05:00] VITALS: BP 117/60; PULSE 56; RESP 18; TEMP 98.1; O2SAT 97
[2025-02-22] MEDS: ONDANSETRON HCL 4 MG/2 ML VIAL IV PRN (05:00)
[2025-02-22 08:16] LABS: Alanine Aminotransferase 18 U/L (7-40); Albumin 3.7 g/dL (3.2-4.8); Alkaline Phosphatase 71 U/L (46-116); Anion Gap 7 (5-15); BUN/Creatinine Ratio 8.5 (10.0-20.0); Bilirubin, Total 0.4 mg/dL (0.2-1.0); Carbon Dioxide 27 mmol/L (20-31); Chloride 107 mmol/L (98-107); Glucose 93 mg/dL (74-106); Potassium 4.1 mmol/L (3.5-5.1); Sodium 141 mmol/L (136-145); Total Protein 6.1 g/dL (5.7-8.2)
[2025-02-22 08:24] LABS: Blood Urea Nitrogen 5 mg/dL (9-23); Calcium 8.7 mg/dL (8.7-10.4)
[2025-02-22 08:27] LABS: Hematocrit 36.8 % (36.0-46.0); Hemoglobin 12.0 g/dL (12.2-16.2); Mean Corpuscular Hemoglobin 28.1 pg (28.0-32.0); Mean Corpuscular Volume 86.3 fL (80.0-100.0); Nucleated Red Blood Cells % 0.0 %
[2025-02-22] MEDS: cefTRIAXone 1GM/50ML D5W 50 ML IV SCH (09:14)
[2025-02-22 09:54] VITALS: BP 109/68; PULSE 54; RESP 16; TEMP 98; O2SAT 97
--- NOTE | 2025-02-22 13:01 | DVHPN2 ---
Changes from previous H/P or p: No Changes Eyes: No Pain, No Vision change, No Conjunctivae inflammation, No Eyelid inflammation, No Other, No Redness ENT: No Ear pain, No Ear discharge, No Nose pain, No Nose discharge, No Nose congestion, No Mouth pain, No Mouth swelling, No Throat pain, No Throat swelling, No Other Cardiovascular: No Chest Pain, No Palpitations, No Orthopnea, No Paroxysmal Noc. Dyspnea, No Edema, No Lt Headedness, No Other Respiratory: No Cough, No Dry, No Shortness of breath, No SOB with excertion, No Wheezing, No Hemoptysis, No Pleuritic Pain, No Sputum, No Other Gastrointestinal: Nausea; No Vomiting; Abdominal Pain, Diarrhea; No Constipation, No Melena, No Hematochezia, No Other Genitourinary: No Dysuria, No Frequency, No Incontinence, No Hematuria, No Retention, No Other Musculoskeletal: No other, No neck pain, No shoulder pain, No arm pain, No back pain, No hand pain, No leg pain, No foot pain Skin: No Rash, No Lesions, No Jaundice, No Bruising, No Other Objective Vitals Vital Signs Date Time Temp Pulse Resp B/P (MAP) Pulse Ox O2 Delivery O2 Flow Rate FiO2 02/22/25 09:54 98.0 54 16 109/68 (82) 97 98.0 02/22/25 08:00 Room Air* 0 21 Intake/Output Intake and Output 02/22/25 07:00 Intake Total 3250 ml Balance 3250 ml Intake Oral 1050 ml IV Total 2200 ml # Voids 2 Medications Current Medications Medications Dose Ordered Sig/Reece Route Start Time Stop Time Status Last Admin Dose Admin Ondansetron HCl 4 mg Q4HP PRN IV 02/21/25 09:30 02/22/25 12:35 4 MG Docusate Sodium 100 mg BIDPRN PRN PO 02/21/25 09:30 Acetaminophen 650 mg Q6HP PRN PO 02/21/25 09:30 02/22/25 04:58 650 MG Sodium Chloride 1,000 ml @ 125 mls/hr Q8H IV 02/21/25 09:30 02/22/25 06:16 125 MLS/HR Metronidazole 100 ml @ 100 mls/hr Q8HR IV 02/21/25 14:00 02/22/25 05:11 100 MLS/HR Ceftriaxone Sodium 50 ml @ 100 mls/hr DAILY@09 IV 02/22/25 09:00 02/22/25 09:14 100 MLS/HR Clonazepam 0.5 mg BIDPRN PRN PO 02/21/25 09:30 02/21/25 19:04 0.5 MG Fluoxetine HCl 60 mg QAM PO 02/22/25 07:00 02/22/25 06:11 60 MG Pantoprazole Sodium 40 mg BID PO 02/21/25 10:00 02/22/25 09:14 40 MG Patient Own Medication 1 tab DAILY PO 02/21/25 10:00 Cholecalciferol 2,000 unit DAILY PO 02/21/25 10:00 02/22/25 09:14 2,000 UNIT Quetiapine Fumarate 50 mg HS PO 02/21/25 22:00 02/21/25 21:00 50 MG Laboratory Results Laboratory Tests 02/22/25 07:16 Chemistry Test 02/22/25 07:16 Albumin 3.7 g/dL (3.2-4.8) Calcium Level 8.7 mg/dL (8.7-10.4) Total Protein 6.1 g/dL (5.7-8.2) LFT Test 02/22/25 07:16 Alanine Aminotransferase (ALT) 18 U/L (7-40) Alkaline Phosphatase 71 U/L (46-116) Aspartate Amino Transferase (AST) 15 U/L (13-40) Total Bilirubin 0.4 mg/dL (0.2-1.0) Urinalysis Test 02/21/25 03:05 Urine Color Light-orange (Yellow) Urine Clarity Ex.turbid (Clear) Urine pH 6.0 (5.0-9.0) Urine Specific [place] 1.035 (1.001-1.035) Urine Protein Trace (Negative) H Urine Ketones 1+ (Negative) H Urine Blood Negative /uL (Negative) Urine Nitrite Negative (Negative) Urine Bilirubin Negative (Negative) Urine Urobilinogen Normal mg/dL (Negative) Urine Leukocyte Esterase Negative /uL (Negative) Urine RBC None seen /hpf (0 - 4) Urine Microscopic WBC < 1 /HPF (0-5) Urine Squamous Epithelial Cells Few /hpf (<5) Urine Amorphous Crystals Mod /hpf (None Seen) Urine Bacteria None seen /hpf (None Seen) Urine Glucose Normal mg/dL (Normal) Urine Test Negative (Negative) Microbiology Microbiology Date/Time Source Procedure Growth Status 02/21/25 05:51 Blood Blood Culture - Preliminary NO GROWTH AFTER 24 HOURS OF INCUBATION. Resulted Labs and/or images reviewed: Labs reviewed by me, Image(s) reviewed by me Assessment/Plan Assessment/Plan Intractable diarrhea, Possible enteritis, Rocephin Flagyl Leukocytosis, Schizophrenia, Bipolar, Depression, Anxiety, Time spent 50 mts Gallbladder ultrasound ordered Plan discussed with: Patient Date of Service: Feb 22, 2025 Billing Provider: FREDY LUNA MD Common Visit Codes: [id number] INP/OBS CARE(HIGH) FREDY LUNA MD Feb 22, 2025 13:01
[2025-02-22 13:20] VITALS: BP 112/76; PULSE 58; RESP 16; TEMP 98.5; O2SAT 99
--- NOTE | 2025-02-22 16:07 | DVH ---
CLINICAL HISTORY: abdominal pain TECHNIQUE: Transabdominal sonogram was performed of the right upper quadrant. COMPARISON: None FINDINGS: The liver is mildly increased in echogenicity. There is no focal parenchymal abnormality. No intrahe patic biliary ductal dilatation is present. The liver measures 15.8 cm. The gallbladder is normal with no evidence for stones or wall thickening. The common bile duct is normal in caliber, measuring 4 mm. The partially visualized pancreas is grossly unremarkable. The right kidney is normal in echogenicity and measures 11.3 cm in length. There is no evidence for h ydronephrosis or calculi. IMPRESSION: Mild hepatic steatosis.
[2025-02-22 17:09] VITALS: BP 116/80; PULSE 62; RESP 16; TEMP 98.4; O2SAT 98
[2025-02-22 20:00] VITALS: RESP 18
[2025-02-22 21:00] VITALS: BP 127/82; PULSE 58; RESP 18; TEMP 98.2; O2SAT 99
[2025-02-23 01:00] VITALS: BP 101/60; PULSE 58; RESP 18; TEMP 98.2; O2SAT 97
[2025-02-23 05:00] VITALS: BP 105/66; PULSE 60; RESP 18; TEMP 97.8; O2SAT 97
[2025-02-23 09:00] VITALS: BP 110/77; PULSE 56; RESP 18; TEMP 97.8; O2SAT 100
--- NOTE | 2025-02-23 10:46 | DVHPN2 ---
Reviewed: Care Plan, H&P, Labs, Medications, Previous Orders, Radiology Changes from previous H/P or p: No Changes Eyes: No Pain, No Vision change, No Conjunctivae inflammation, No Eyelid inflammation, No Other, No Redness ENT: No Ear pain, No Ear discharge, No Nose pain, No Nose discharge, No Nose congestion, No Mouth pain, No Mouth swelling, No Throat pain, No Throat swelling, No Other Cardiovascular: No Chest Pain, No Palpitations, No Orthopnea, No Paroxysmal Noc. Dyspnea, No Edema, No Lt Headedness, No Other Respiratory: No Cough, No Dry, No Shortness of breath, No SOB with excertion, No Wheezing, No Hemoptysis, No Pleuritic Pain, No Sputum, No Other Gastrointestinal: Nausea; No Vomiting; Abdominal Pain, Diarrhea; No Constipation, No Melena, No Hematochezia, No Other Genitourinary: No Dysuria, No Frequency, No Incontinence, No Hematuria, No Retention, No Other Musculoskeletal: No other, No neck pain, No shoulder pain, No arm pain, No back pain, No hand pain, No leg pain, No foot pain Skin: No Rash, No Lesions, No Jaundice, No Bruising, No Other Objective Vitals Vital Signs Date Time Temp Pulse Resp B/P (MAP) Pulse Ox O2 Delivery O2 Flow Rate FiO2 02/23/25 09:00 97.8 56 18 110/77 (88) 100 97.8 02/23/25 07:45 Room Air* 0 21 Intake/Output Intake and Output 02/23/25 07:00 Intake Total 2150 ml Balance 2150 ml Intake Oral 800 ml IV Total 1350 ml # Voids 6 # Bowel Movements 1 Medications Current Medications Medications Dose Ordered Sig/Reece Route Start Time Stop Time Status Last Admin Dose Admin Ondansetron HCl 4 mg Q4HP PRN IV 02/21/25 09:30 02/23/25 09:51 4 MG Docusate Sodium 100 mg BIDPRN PRN PO 02/21/25 09:30 Acetaminophen 650 mg Q6HP PRN PO 02/21/25 09:30 02/22/25 22:17 650 MG Sodium Chloride 1,000 ml @ 125 mls/hr Q8H IV 02/21/25 09:30 02/23/25 09:54 125 MLS/HR Metronidazole 100 ml @ 100 mls/hr Q8HR IV 02/21/25 14:00 02/23/25 05:51 100 MLS/HR Ceftriaxone Sodium 50 ml @ 100 mls/hr DAILY@09 IV 02/22/25 09:00 02/23/25 09:51 100 MLS/HR Clonazepam 0.5 mg BIDPRN PRN PO 02/21/25 09:30 02/22/25 22:38 0.5 MG Fluoxetine HCl 60 mg QAM PO 02/22/25 07:00 02/23/25 06:01 60 MG Pantoprazole Sodium 40 mg BID PO 02/21/25 10:00 02/23/25 09:51 40 MG Patient Own Medication 1 tab DAILY PO 02/21/25 10:00 Cholecalciferol 2,000 unit DAILY PO 02/21/25 10:00 02/23/25 09:51 2,000 UNIT Quetiapine Fumarate 50 mg HS PO 02/21/25 22:00 02/22/25 21:38 50 MG Laboratory Results Laboratory Tests 02/22/25 07:16 Urinalysis Test 02/21/25 03:05 Urine Color Light-orange (Yellow) Urine Clarity Ex.turbid (Clear) Urine pH 6.0 (5.0-9.0) Urine Specific [place] 1.035 (1.001-1.035) Urine Protein Trace (Negative) H Urine Ketones 1+ (Negative) H Urine Blood Negative /uL (Negative) Urine Nitrite Negative (Negative) Urine Bilirubin Negative (Negative) Urine Urobilinogen Normal mg/dL (Negative) Urine Leukocyte Esterase Negative /uL (Negative) Urine RBC None seen /hpf (0 - 4) Urine Microscopic WBC < 1 /HPF (0-5) Urine Squamous Epithelial Cells Few /hpf (<5) Urine Amorphous Crystals Mod /hpf (None Seen) Urine Bacteria None seen /hpf (None Seen) Urine Glucose Normal mg/dL (Normal) Urine Test Negative (Negative) Microbiology Microbiology Date/Time Source Procedure Growth Status 02/21/25 05:51 Blood Blood Culture - Preliminary NO GROWTH AFTER 48 HOURS OF INCUBATION. Resulted Labs and/or images reviewed: Labs reviewed by me, Image(s) reviewed by me Assessment/Plan Assessment/Plan Intractable diarrhea, resolved Possible enteritis, Rocephin Flagyl Leukocytosis, Schizophrenia, Bipolar, Depression, Anxiety, Gallbladder Ultrasound negative Time spent 50 mts Gallbladder ultrasound ordered Plan discussed with: Patient, Other (RN) My Orders Orders - FREDY LUNA MD Procedure Category Date Status Time Gallbladder US 02/22/25 Resulted 15:13 Date of Service: Feb 23, 2025 Billing Provider: FREDY LUNA MD Common Visit Codes: [id number] INP/OBS CARE(HIGH) FREDY LUNA MD Feb 23, 2025 10:46
[2025-02-23] MEDS ORDERED: PANT40T PO (10:47)
[2025-02-23] MEDS ORDERED: METR-344 PO (10:47)
--- NOTE | 2025-02-23 10:51 | DVHDS2 ---
Discharge Summary Date of Admission Feb 21, 2025 at 09:17 Date of Discharge: Feb 23, 2025 Admitting Diagnosis Vomiting and diarrhea Wounds: None Labs/Diagnostic Data: Laboratory Results Test 02/22/25 07:16 02/21/25 05:51 02/21/25 03:11 02/21/25 03:05 White Blood Count 10.1 10^3/uL (4.4-10.8) Red Blood Count 4.26 10^6/uL (4.0-5.20) Hemoglobin 12.0 g/dL (12.2-16.2) Hematocrit 36.8 % (36.0-46.0) Mean Corpuscular Volume 86.3 fL (80.0-100.0) Mean Corpuscular Hemoglobin 28.1 pg (28.0-32.0) Mean Corpuscular Hemoglobin Concent 32.6 g/dL (32.0-36.0) Red Cell Distribution Width 14.4 % (11.8-14.3) Platelet Count 263 10^3/uL (140-450) Mean Platelet Volume 9.1 fL (6.9-10.8) Neutrophils (%) (Auto) 57.2 % (37.0-80.0) Lymphocytes (%) (Auto) 33.7 % (10.0-50.0) Monocytes (%) (Auto) 5.7 % (0.0-12.0) Eosinophils (%) (Auto) 2.9 % (0.0-7.0) Basophils (%) (Auto) 0.5 % (0.0-2.0) Neutrophils # (Auto) 5.8 10 ^3/uL (1.6-8.6) Lymphocytes # (Auto) 3.4 10 ^3/uL (0.4-5.4) Monocytes # (Auto) 0.6 10 ^3/uL (0-1.3) Eosinophils # (Auto) 0.3 10 ^3/uL (0-0.8) Basophils # (Auto) 0 10 ^3/uL (0-0.2) Nucleated Red Blood Cells 0.0 % Sodium Level 141 mmol/L (136-145) Potassium Level 4.1 mmol/L (3.5-5.1) Chloride Level 107 mmol/L (98-107) Carbon Dioxide Level 27 mmol/L (20-31) Anion Gap 7 (5-15) Blood Urea Nitrogen 5 mg/dL (9-23) Creatinine 0.59 mg/dL (0.550-1.02) Glomerular Filtration Rate Calc 132 mL/min (>90) BUN/Creatinine Ratio 8.5 (10.0-20.0) Serum Glucose 93 mg/dL (74-106) Calcium Level 8.7 mg/dL (8.7-10.4) Total Bilirubin 0.4 mg/dL (0.2-1.0) Aspartate Amino Transferase (AST) 15 U/L (13-40) Alanine Aminotransferase (ALT) 18 U/L (7-40) Alkaline Phosphatase 71 U/L (46-116) Total Protein 6.1 g/dL (5.7-8.2) Albumin 3.7 g/dL (3.2-4.8) Lactic Acid Level 1.0 mmol/L (0.4-2.0) Lipase 32 U/L (12-53) Urine Color Light-orange (Yellow) Urine Clarity Ex.turbid (Clear) Urine pH 6.0 (5.0-9.0) Urine Specific [place] 1.035 (1.001-1.035) Urine Protein Trace (Negative) Urine Ketones 1+ (Negative) Urine Blood Negative /uL (Negative) Urine Nitrite Negative (Negative) Urine Bilirubin Negative (Negative) Urine Urobilinogen Normal mg/dL (Negative) Urine Leukocyte Esterase Negative /uL (Negative) Urine RBC None seen /hpf (0 - 4) Urine Microscopic WBC < 1 /HPF (0-5) Urine Squamous Epithelial Cells Few /hpf (<5) Urine Amorphous Crystals Mod /hpf (None Seen) Urine Bacteria None seen /hpf (None Seen) Urine Glucose Normal mg/dL (Normal) Urine Test Negative (Negative) Other Laboratory Tests 02/22/25 07:16 Brief Hx & Hospital Course: 19-year-old female with a history of bipolar schizophrenia depression anxiety came in for nausea vomiting diarrhea CT abdomen pelvis without contrast was negative gallbladder ultrasound was negative treated with Rocephin Flagyl and IV fluids patient feels better being discharged home stable vital signs at the time of discharge Prescription for Flagyl and pantoprazole transmitted to the pharmacy. MAURY Lou bedside at the time of discussion of the discharge plan with the patient Consults/Reason for consult none Operations or Procedures CT abdomen pelvis without contrast Gallbladder ultrasound Condition at Discharge: Fair Final Diagnosis/Problems List Intractable diarrhea, Possible enteritis, Rocephin Flagyl Leukocytosis, Schizophrenia, Bipolar, Depression, Anxiety, Gallbladder Ultrasound negative Discharge Disposition: Home Discharge Instruct/Medications Diet: Regular Activity: Light activity Follow Up/Referral: Follow up with the primary Dr if needed Medications: Flagyl Pantoprazole Transmitted to [place] pharmacy Scheduled Carbamazepine (Carbamazepine ER), 1 PO DAILY, (Reported) Cholecalciferol (D3 Super Strength), 1 CAP PO DAILY, (Reported) Fluoxetine HCl (Fluoxetine HCl), 3 CAP PO QAM, (Reported) Metronidazole (Flagyl), 1 TAB PO TID Pantoprazole Sodium Sesquihydr (Pantoprazole Sodium), 1 TAB PO BID, (Reported) Pantoprazole Sodium Sesquihydr (Pantoprazole Sodium), 40 MG PO DAILY Quetiapine Fumerate (Quetiapine Fumarate), 1 TAB PO HS, (Reported) Scheduled PRN Clonazepam (Clonazepam), 1 TAB PO BIDPRN PRN, (Reported) Dicyclomine Hcl (Bentyl Capsule), 2 CAP PO Q6HP PRN Discontinued Medications Aripiprazole (Abilify), Unknown Dose PO DAILY, (Reported) Cholecalciferol (D3), Unknown Dose PO, (Reported) Citalopram Hydrobromide (Celexa), Unknown Dose PO DAILY, (Reported) Metronidazole (Metronidazole), 500 MG PO BID Naproxen (Naprosyn Tablet), Unknown Dose PO BID, (Reported) Sertraline Hcl (Sertraline Hcl), Unknown Dose PO DAILY, (Reported) 35 (Time taken for discharge summary 35 minutes) Discharge Statement: "Patient was advised to return to the ER or call 911 if any headaches, dizziness, shortness of breath, chest pain, abdominal pain, bleeding, fevers, or worsening of medical condition. Patient was counseled about treatment plan, medications, possible side effects, patientverbalized understanding. All questions were answered to the best of my ability. This discharge took greater then 30 minutes in planning, reviewing documentation, counseling the patient, and discussing with other team members." ASSESSMENT ASSESSMENT Hospital Course Uneventful Assessment Intractable diarrhea, Possible enteritis, Rocephin Flagyl Leukocytosis, Schizophrenia, Bipolar, Depression, Anxiety, Gallbladder Ultrasound negative Date of Service: Feb 23, 2025 Billing Provider: FREDY LUNA MD Common Visit Codes: [id number] DISCH DAY >30min FREDY LUNA MD Feb 23, 2025 10:51
== END 2025-02-23 12:57 | disposition home or self-care (01) | DRG 248 ==
LOC: EDBD 02:37 → ER 02:37 → OVERFLOW 09:17 → WEST WING 15:52
PROVIDERS: ADMIT Family Medicine; ATTEND Family Medicine
DX: A04.9 Bacterial intestinal infection, unspecified (principal); D72.829 Elevated white blood cell count, unspecified; E86.0 Dehydration; F20.9 Schizophrenia, unspecified; F31.9 Bipolar disorder, unspecified; F41.9 Anxiety disorder, unspecified; Z88.0 Allergy status to penicillin
CPT/HCPCS: 36415; 74177; 76705; 80053; 81001; 81025; 83605; 83690; 85025; 87040; 96365; 96375; G0378; J2405; J3490